=== PATIENT | female | born 1990 | race Two or more races ===

== ENCOUNTER → 2016-07-01 | Outpatient (CLI) | payer SELFPAY | LOC: RAD 12:29 | PROVIDERS: ATTEND Nurse Practitioner Women's Health | DX: Z34.82 Encounter for supervision of other normal pregnancy, second trimester (principal) | CPT/HCPCS: 76805 ==

== ENCOUNTER 2016-09-22 13:10 | Outpatient (CLI) | payer SELFPAY ==
[2016-09-22 15:03] LABS: APPEARANCE,URINE SLIGHTLY-CLOUDY; BILIRUBIN,URINE NEGATIVE (NEGATIVE); GLUCOSE, URINE 50 mg/dL (NEGATIVE); KETONES,URINE 80 mg/dL (NEGATIVE); LEUKOCYTE ESTERASE,URINE NEGATIVE (NEGATIVE); NITRITE,URINE NEGATIVE (NEGATIVE); PROTEIN,URINE 30 mg/dL (NEGATIVE); URINE SPECIFIC GRAVITY 1.024; UROBILINOGEN,URINE NEGATIVE mg/dL (<2.0)
[2016-09-22 15:38] LABS: URINE BARBITURATES SCREEN NEGATIVE; URINE METHADONE SCREEN NEGATIVE; URINE OPIATES LOW NEGATIVE; URINE PHENCYCLIDINE SCREEN NEGATIVE
== END 2016-09-22 16:15 | disposition home or self-care (01) ==
LOC: LC 13:10
PROVIDERS: ATTEND Obstetrics & Gynecology
PROC: 4A1HXCZ Monitoring of Products of Conception, Cardiac Rate, External Approach (ICD-10-PCS; principal; 2016-09-22)
DX: O47.03 False labor before 37 completed weeks of gestation, third trimester (principal); Z3A.31 31 weeks gestation of pregnancy
CPT/HCPCS: 80307; 81005

== ENCOUNTER 2016-10-31 12:32 | Outpatient (CLI) | payer SELFPAY ==
--- NOTE | 2016-10-31 13:19 | Non Stress Test Report ---
Non Stress Test Datetime Report Generated by CPN: 10/31/2016 13:19 DEMOGRAPHIC EGA NST: 32.2 INDICATION Indication for Study: Other Indication for Study (NST) Other: lc MONITORING Monitor Explained: Monitor Explained; Test Explained; Patient Verbalized Understanding Time on Monitor: 09/22/2016 13:30 Time off Monitor: 09/22/2016 16:15 NST Duration: 165 NST INTERVENTIONS NST Interventions: PO Hydration; IV Fluids; Reposition Patient Physician Notified NST: H. Sp, CNM BABY A: [id number] BABY A Movement : Present Contraction Frequency : irreg FHR Baseline : 125 Accelerations : 15X15 Decelerations : None Variability : Moderate 6-25bpm NST Review: Meets Criteria for Reactive NST NST Review and Verified By : BLU Edward Results: Reactive NST REPORT Report Trigger: Send Report
[2016-10-31 13:53] LABS: APPEARANCE,URINE CLOUDY; BILIRUBIN,URINE NEGATIVE (NEGATIVE); GLUCOSE, URINE NEGATIVE (NEGATIVE); KETONES,URINE NEGATIVE (NEGATIVE); LEUKOCYTE ESTERASE,URINE TRACE (NEGATIVE); NITRITE,URINE NEGATIVE (NEGATIVE); PROTEIN,URINE 30 mg/dL (NEGATIVE); URINE SPECIFIC GRAVITY 1.015; UROBILINOGEN,URINE NEGATIVE mg/dL (<2.0)
[2016-10-31 14:24] LABS: URINE BARBITURATES SCREEN NEGATIVE; URINE METHADONE SCREEN NEGATIVE; URINE OPIATES LOW NEGATIVE; URINE PHENCYCLIDINE SCREEN NEGATIVE
--- NOTE | 2016-10-31 14:51 | Non Stress Test Report ---
Non Stress Test Datetime Report Generated by CPN: 10/31/2016 14:51 DEMOGRAPHIC EGA NST: 37.6 INDICATION Indication for Study: Decreased Movement MONITORING Monitor Explained: Monitor Explained; Test Explained; Patient Verbalized Understanding Time on Monitor: 10/31/2016 13:22 Time off Monitor: 10/31/2016 14:21 NST Duration: 59 NST INTERVENTIONS NST Interventions: PO Hydration Physician Notified NST: Dr. Maher BABY A Contraction Frequency : 2-6 FHR Baseline : 140 Accelerations : 15X15 Decelerations : None Variability : Moderate 6-25bpm NST Review: Meets Criteria for Reactive NST NST Review and Verified By : Joe Bui RNC NST Results: Reactive NST REPORT Report Trigger: Send Report
== END 2016-10-31 14:38 | disposition home or self-care (01) ==
LOC: LC 12:32
PROVIDERS: ATTEND Student in an Organized Health Care Education/Training Program
PROC: 4A1HXCZ Monitoring of Products of Conception, Cardiac Rate, External Approach (ICD-10-PCS; principal; 2016-10-31)
DX: O36.8130 Decreased fetal movements, third trimester, not applicable or unspecified (principal); O47.1 False labor at or after 37 completed weeks of gestation; Z3A.37 37 weeks gestation of pregnancy
CPT/HCPCS: 59025; 80307; 81005

== ENCOUNTER 2016-11-15 12:25 | Inpatient (IN) | payer MEDICAID ==
[2016-11-15] MEDS ORDERED: DIPHENHYDRAMINE HCL 25 MG CAPSULE ONE ×2 (13:01→13:52)
[2016-11-15 13:45] LABS: APPEARANCE,URINE SLIGHTLY-CLOUDY; BILIRUBIN,URINE SMALL (NEGATIVE); GLUCOSE, URINE NEGATIVE (NEGATIVE); KETONES,URINE NEGATIVE (NEGATIVE); LEUKOCYTE ESTERASE,URINE NEGATIVE (NEGATIVE); NITRITE,URINE NEGATIVE (NEGATIVE); PROTEIN,URINE >=500 mg/dL (NEGATIVE); URINE SPECIFIC GRAVITY 1.024
[2016-11-15] MEDS ORDERED: RINGERS SOLUTION,LACTATED 1,000 ML IV ONE (13:52)
[2016-11-15] MEDS ORDERED: RINGERS SOLUTION,LACTATED 1,000 ML IV PRN ×2 (13:52→14:42)
[2016-11-15 13:57] LABS: ABSOLUTE EOSINOPHILS # (AUTO) 0.1 10^3/uL (0.0-0.6); ABSOLUTE LYMPHOCYTES (AUTO) 0.8 10^3/uL (0.5-4.7); ABSOLUTE MONOCYTES (AUTO) 0.3 10^3/uL (0.1-1.4); ABSOLUTE NEUT (AUTO) 1.8 10^3/uL (1.7-8.2); EOSINOPHILS % (AUTO) 2.4 % (0-6); HEMATOCRIT 32.4 % (36.0-47.0); HEMOGLOBIN 10.7 g/dL (12.0-15.5); HGB HCT DIFFERENCE -0.3; LYMPHOCYTES % (AUTO) 27.2 % (13-45); MEAN CORPUSCULAR HEMOGLOBIN 27.3 pg (27.0-33.4); MEAN CORPUSCULAR HGB CONC 33.1 g/dL (32.0-36.0); MEAN CORPUSCULAR VOLUME 83 fl (80-97); MONOCYTES % (AUTO) 10.2 % (3-13); RED BLOOD COUNT 3.93 10^6/uL (3.72-5.28); RED CELL DISTRIBUTION WIDTH 16.3 % (11.5-14.0); SEGMENTED NEUTROPHILS % (AUTO) 59.2 % (42-78)
[2016-11-15 14:10] LABS: BLOOD UREA NITROGEN 9 mg/dL (7-20); CREATININE RESULT 0.59 mg/dL (0.52-1.25); GLUCOSE 64 mg/dL (75-110)
[2016-11-15 14:11] LABS: ALANINE AMINOTRANSFERASE 90 U/L (9-52); ALBUMIN 2.4 g/dL (3.5-5.0); ALKALINE PHOSPHATASE 288 U/L (38-126); AMYLASE 73 U/L (30-110); ANION GAP 8 (5-19); ASPARTATE AMINO TRANSFERASE 47 U/L (14-36); BILIRUBIN,DIRECT 0.4 mg/dL (0.0-0.4); CARBON DIOXIDE 19 mmol/L (22-30); CHLORIDE 103 mmol/L (98-107); LIPASE 98.2 U/L (23-300); SODIUM 130.2 mmol/L (137-145); TOTAL PROTEIN 5.4 g/dL (6.3-8.2)
[2016-11-15 14:12] LABS: URINE BARBITURATES SCREEN NEGATIVE; URINE METHADONE SCREEN NEGATIVE; URINE OPIATES LOW NEGATIVE; URINE PHENCYCLIDINE SCREEN NEGATIVE
[2016-11-15] MEDS ORDERED: RINGERS SOLUTION,LACTATED 300 ML IV ONE (14:42)
[2016-11-15] MEDS ORDERED: OXYTOCIN/NORMAL SALINE 1,000 ML IV PRN (14:42)
[2016-11-15] MEDS ORDERED: MISOPROSTOL 0.1 MG TABLET PO SCH (14:45)
[2016-11-15 14:48] LABS: URIC ACID 5.5 mg/dL (2.5-6.2)
[2016-11-15 15:15] LABS: URINE CREATININE 235.8 mg/dL (16-327)
[2016-11-15] MEDS ORDERED: MISOPROSTOL 0.1 MG TABLET ONE (15:39)
[2016-11-15 15:42] LABS: URINE PROTEIN 828.9 mg/dL (<12)
[2016-11-15 17:49] LABS: ABSOLUTE EOSINOPHILS # (AUTO) 0.1 10^3/uL (0.0-0.6); ABSOLUTE MONOCYTES (AUTO) 0.3 10^3/uL (0.1-1.4); ABSOLUTE NEUT (AUTO) 2.4 10^3/uL (1.7-8.2); BASOPHILS % (AUTO) 0.8 % (0-2); EOSINOPHILS % (AUTO) 2.1 % (0-6); HEMATOCRIT 34.7 % (36.0-47.0); HEMOGLOBIN 11.5 g/dL (12.0-15.5); HGB HCT DIFFERENCE -0.2; MEAN CORPUSCULAR HEMOGLOBIN 27.3 pg (27.0-33.4); MEAN CORPUSCULAR HGB CONC 33.3 g/dL (32.0-36.0); MEAN CORPUSCULAR VOLUME 82 fl (80-97); MONOCYTES % (AUTO) 8.1 % (3-13); RED BLOOD COUNT 4.23 10^6/uL (3.72-5.28); RED CELL DISTRIBUTION WIDTH 16.2 % (11.5-14.0); WHITE BLOOD COUNT 3.8 10^3/uL (4.0-10.5)
[2016-11-15 17:58] LABS: ALANINE AMINOTRANSFERASE 98 U/L (9-52); ALBUMIN 2.6 g/dL (3.5-5.0); ALKALINE PHOSPHATASE 305 U/L (38-126); ANION GAP 11 (5-19); ASPARTATE AMINO TRANSFERASE 48 U/L (14-36); BILIRUBIN,DIRECT 0.5 mg/dL (0.0-0.4); BILIRUBIN,TOTAL 1.2 mg/dL (0.2-1.3); BLOOD UREA NITROGEN 7 mg/dL (7-20); CALCIUM 8.3 mg/dL (8.4-10.2); CARBON DIOXIDE 19 mmol/L (22-30); CHLORIDE 104 mmol/L (98-107); CREATININE RESULT 0.57 mg/dL (0.52-1.25); GLUCOSE 70 mg/dL (75-110); LDH 492 U/L (313-618); POTASSIUM 4.1 mmol/L (3.6-5.0); SODIUM 133.5 mmol/L (137-145); TOTAL PROTEIN 5.4 g/dL (6.3-8.2); URIC ACID 5.4 mg/dL (2.5-6.2)
[2016-11-15] MEDS ORDERED: NALBUPHINE HCL INJ 10 MG/1 ML AMPULE INJ ONE (20:23)
[2016-11-15] MEDS ORDERED: NALBUPHINE HCL INJ 10 MG/1 ML AMPULE ONE (20:27)
[2016-11-15] MEDS ORDERED: MISOPROSTOL 0.2 MG TABLET ONE (20:27)
[2016-11-15] MEDS ORDERED: OXYTOCIN/NORMAL SALINE 20 UNIT/1,000 ML RTUINJ ONE (20:27)
[2016-11-15] MEDS ORDERED: LIDOCAINE 1% INJ-PF (10 MG/ML) 30 ML SDV ONE (20:27)
--- NOTE | 2016-11-15 20:36 | L&D Progress Notes ---
PROGRESS NOTES Datetime Report Generated by CPN: 11/15/2016 20:36 PROGRESS NOTE Impression: Normal Progression of Labor Procedures: Sterile Vag Exam Plan: Continue Present Management; Induction; Cervical Ripening Informed Consent Obtained: Vaginal Delivery; Risks, Benefits and Alternatives Discussed Informed Consent Obtained: Vaginal Delivery; Risks, Benefits and Alternatives Discussed Vital Signs : Reviewed; Within Normal Limits Comment: cvx 1/70/-2 after 4 hours of cytotec. FB to tension placed and will start pitocin. Pelvis adequate for JOSE ANGEL. friends at bedside. GBS negative. Anticpate VAGINAL EXAM Dilatation: 1 Dilatation: 1 Effacement: 70 Effacement: 50 Station: -2 Station: -3 MEMBRANES Membranes: Intact FETUS A FHR - Baseline: 160 Monitoring: External US Variability: Moderate 6-25bpm Accelerations: 15X15 Decelerations: None FHR Category: Category I Presentation: Vertex SIGNATURE SIGNATURE: [id number];[id number] SIGNATURE: [id number] SIGNATURE: [id number] Signature: with User ID: [email or web address]
--- NOTE | 2016-11-15 21:44 | L&D Progress Notes ---
PROGRESS NOTES Datetime Report Generated by CPN: 11/15/2016 21:44 PROGRESS NOTE Impression: Normal Progression of Labor; Reassuring Heart Rate Procedures: Artificial ROM; Sterile Vag Exam Plan: Continue Present Management; Induction Informed Consent Obtained: Vaginal Delivery; Risks, Benefits and Alternatives Discussed Vital Signs : Reviewed; Within Normal Limits Comment: pt with regular ctx pattern. Normal BPs and stable labs. FB noted to be in vagina and removed. Cvx now 6-7//-3 and AROM with thick meconium noted. Pt reports feeling pressure. Declines pain meds and declines epidural. Anticpate . Pelvis adequate for JOSE ANGEL. VAGINAL EXAM Dilatation: 6 Effacement: 70 Station: -3 MEMBRANES Membranes: Ruptured Amniotic Fluid Color: Meconium, Particulate FETUS A FHR - Baseline: 125 Monitoring: External US Variability: Moderate 6-25bpm Accelerations: 15X15 Decelerations: None FHR Category: Category I FETUS C SIGNATURE: [id number];[id number] Signature: with User ID: [email or web address]
[2016-11-16] MEDS ORDERED: ONDANSETRON 4 MG TAB.RAPDIS ONE (03:01)
[2016-11-16] MEDS ORDERED: MISOPROSTOL 0.2 MG TABLET PR ONE ×2 (03:12→05:00)
[2016-11-16] MEDS ORDERED: OXYTOCIN 10 UNIT/ML VIAL ONE (03:20)
[2016-11-16] MEDS ORDERED: METHYLERGONOVINE MALEATE INJ/PF 0.2 MG/1 ML AMPULE ONE (03:20)
[2016-11-16] MEDS ORDERED: IBUPROFEN 800 MG TABLET ONE (03:38)
[2016-11-16] MEDS ORDERED: CEFAZOLIN 2 GM/D5W RTU 2 GM/50 ML RTUPB IV ONE (03:41)
[2016-11-16] MEDS ORDERED: ZOLPIDEM TARTRATE 5 MG TABLET PO PRN (05:11)
[2016-11-16] MEDS ORDERED: DIPH/PERTUSS(ACELL)/TETANUS VAC/PF 0.5 ML SYR (>=10YO) IM PRN (05:11)
[2016-11-16] MEDS ORDERED: MEASLES,MUMPS&RUBELLA VACC/PF 0.5 ML VIAL SUBCUT PRN (05:11)
[2016-11-16] MEDS ORDERED: DIBUCAINE 1% OINTMENT 28 GM TP PRN (05:11)
[2016-11-16] MEDS ORDERED: ACETAMINOPHEN WITH CODEINE #3 TABLET PO PRN ×2 (05:11)
[2016-11-16] MEDS ORDERED: BENZOCAINE/MENTHOL AEROSOL SPRAY 56 ML TOP PRN (05:11)
--- NOTE | 2016-11-16 05:18 | Delivery Summary ---
Del Sum A-C Datetime Report Generated by CPN: 11/16/2016 05:17 DELIVERY PERSONNEL DELIVERY PERSONNEL: [id number];[id number];[id number] Delivery Doctor:: Terra Maher MD Labor and Delivery Nurse:: Brandie Doss RN Nursery Nurse:: Kelsy Graves RN MSN Packaging Materials Inspector/SUPERVISOR RESEARCH KENNEL: Bibi Torres, ST MATERNAL INFORMATION Delivery Anesthesia: Local Medications After Delivery: Pitocin Drip 20 Units/1000ml NSS; Methergine 0.2mg IM; Other-Please Comment Meds After Delivery Comment: Cytotec 1000mcg per rectum Estimated Blood Loss (ml): 450 Maternal Complications: None Provider Comments: VFI delivered in ZACARIAS presentation. Loose nuchal cord delivered through. SHoulders and body delivered without difficulty. Cord doubly clamped and cut and infant to warmer for NRP. Placenta delivered intact spontaneously. Uterine atony noted - manual exploration revealed retained membranes. Methergine IM and Cytotec given and 20units of pitocin added to bag. Straight cath performed with minimal output. Significant improvement noted in tone and now with minimal bleeding. 1st degree midline laceration repaired with good hemostasis. Apgars 8/9. Weight pending. FF at U. LABOR SUMMARY EDC: 11/15/2016 00:00 No. Babies in Womb: 1 Attempted: No Labor Anesthesia: None LABOR INFORMATION Reason for Induction: Other Reason for Induction- Other: increased PIH labs Onset of Labor: 11/15/2016 21:37 Complete Dilatation: 11/16/2016 02:52 Cervical Ripening Agents: Porter Balloon; Cytotec @ Oxytocin: Induction Group B Beta Strep: negative Antibiotics # of Doses: 0 Steroids Given: None Reason Steroids Not Administered: Not Applicable MEMBRANES Membranes Rupture Method: Artificial Rupture of Membranes: 11/15/2016 21:37 Length of Rupture (hr): 5.58 Amniotic Fluid Color: Heavy Meconium Amniotic Fluid Amount: Small Amniotic Fluid Odor: Normal STAGES OF LABOR Stage 1 hr: 5 Stage 1 min: 15 Stage 2 hr: 0 Stage 2 min: 20 Stage 3 hr: 0 Stage 3 min: 2 Total Time in Labor hr: 5 Total Time in Labor min: 37 VAGINAL DELIVERY Episiotomy: None Laceration Extension: First Degree Laceration Type: Perineal Other Laceration: midline Laceration Repair: Yes Laceration Repair Note: 1st degree ML perineal laceration repaired with good hemostasis. Sponge Count Correct: N/A Sharps Count Correct: Yes CSECTION DELIVERY Primary Indication: N/A Secondary Indication: N/A CSection Incidence: N/A Labor: N/A Elective: N/A CSection Incision: N/A BABY A INFORMATION Delivery Date/Time: 11/16/2016 03:12 Method of Delivery: Vaginal Born in Route : No : N/A Forceps: N/A Vacuum Extraction: N/A Shoulder Dystocia : No PRESENTATION/POSITION BABY A Presentation: Cephalic Cephalic Presentation: Vertex Vertex Position: Left Occipital Anterior Breech Presentation: N/A PLACENTA INFORMATION BABY A Placenta Delivery Time : 11/16/2016 03:14 Placenta Method of Delivery: Spontaneous Placenta Status: Delivered SCORES BABY A Heart Rate 1 min: >100 bpm Resp Effort 1 min: Good Cry Reflex Irritability 1 min: Cough or Sneeze or Pulls Away Muscle Tone 1 min: Active Motion Color 1 min: Blue/Pale Resuscitation Effort 1 min: Tactile Stimulation SCORE 1 MIN: 8 Heart Rate 5 min: >100 bpm Resp Effort 5 min: Good Cry Reflex Irritability 5 min: Cough or Sneeze or Pulls Away Muscle Tone 5 min: Active Motion Color 5 min: Body [place], Extremities Blue Resuscitation Effort 5 min: Tactile Stimulation SCORE 5 MIN: 9 INFANT INFORMATION BABY A Gestational Age at Delivery: 40.1 Gestational Status: Full Term- 39- 40.6 Weeks Outcome : Liveborn Infant Condition : Stable Infant Sex: Female IDENTIFICATION BABY A Verification Date/Time: 11/16/2016 03:38 ID Band Number: [id number] Mother's Name Verified: Yes RN Verifying : S. Willtibeamarieir, RN _ M. Levian, RN WEIGHT/LENGTH BABY A Infant Birthweight (gm): 3760 Weight (lb): 8 Infant Weight (oz): 5 Length (in): 21.00 Infant Length (cm): 53.34 CORD INFORMATION BABY A No. Cord Vessels: 3 Nuchal Cord : Around Neck x1, Loose Cord Blood Taken: Yes-For Eval (Mom's Blood Type - or O+) Infant Suction: Mouth; Nose ASSESSMENT BABY A Infant Complications: Meconium Physical Findings at Delivery: Molding of the Head Infant Respirations: Appears Normal Skin to Skin: No Skin to Skin Time (min): 0 Automobile Brakes Bonder/ALS Called : No Care By: Jordan Graves RN Transferred To: Remains with Mother BABY B INFORMATION : N/A SIGNATURES Signature: with User ID: [email or web address]
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
[2016-11-16] MEDS: DOCUSATE SODIUM 100 MG CAPSULE PO SCH ×2 (09:47→17:04)
[2016-11-16] MEDS: FERROUS SULFATE 325 MG TABLET PO SCH ×2 (09:47→17:04)
[2016-11-16] MEDS: PRENATAL VITAMIN W-O CA NO5/FE FUMARATE/FA CAPSULE PO SCH (09:47)
[2016-11-16] MEDS: IBUPROFEN 800 MG TABLET PO SCH ×3 (09:48→21:16)
[2016-11-16] MEDS: SENNOSIDES/DOCUSATE 8.6-50 MG 1 EACH TABLET PO SCH (09:48)
--- NOTE | 2016-11-16 11:37 | PDOC PROGRESS REPORT ---
Subjective-OB Subjective: Post Delivery Day: 26 year old. Denies any needs at this time australian speaking no translation needed pt offers no complaints spouse and son present bps labile 140- 150/ 80-90 denies headache or blurred vision ff@u-1 mild lochia discharge planning completed Physical Exam (OB) Vital Signs: Temp Pulse Resp BP Pulse Ox 98.8 F 54 L 18 145/84 H 100 11/16/16 07:27 11/16/16 09:23 11/16/16 05:32 11/16/16 09:23 11/16/16 07:27 Intake & Output 11/15/16 11/16/16 11/17/16 06:59 06:59 06:59 Weight 69.55 kg - PIH/Pre-Eclampsia Headache: Absent Epigastric Pain: No Visual Changes: No - Lochia Lochia Amount: Moderate 25-50 ml Lochia Color: Rubra/Red - Abdomen Description: Soft, Round Hernia Present: No Fundal Description: Firm, Non-Midline Describe if Not Midline: slightly over to the right Fundal Height: u/u - u/2 Objective-Diagnostic Laboratory: 11/15/16 17:30 11/15/16 17:30 11/15/16 11/15/16 11/15/16 13:00 13:30 13:30 WBC 3.0 L RBC 3.93 Hgb 10.7 L Hct 32.4 L MCV 83 MCH 27.3 MCHC 33.1 RDW 16.3 H Plt Count 131 L Seg Neutrophils % 59.2 Lymphocytes % 27.2 Monocytes % 10.2 Eosinophils % 2.4 Basophils % 1.0 Absolute Neutrophils 1.8 Absolute Lymphocytes 0.8 Absolute Monocytes 0.3 Absolute Eosinophils 0.1 Absolute Basophils 0.0 Sodium 130.2 L Potassium 4.0 Chloride 103 Carbon Dioxide 19 L Anion Gap 8 BUN 9 Creatinine 0.59 Est GFR ( Amer) > 60 Est GFR (Non-Af Amer) > 60 Glucose 64 L Uric Acid Calcium 8.0 L Total Bilirubin 1.0 AST 47 H ALT 90 H Alkaline Phosphatase 288 H Total Protein 5.4 L Albumin 2.4 L Amylase 73 Lipase 98.2 Urine Color NISA Urine Appearance SLIGHTLY-CLOUDY Urine pH 5.0 Ur Specific [place] 1.024 Urine Protein >=500 H Urine Glucose (UA) NEGATIVE Urine Ketones NEGATIVE Urine Blood NEGATIVE Urine Nitrite NEGATIVE Ur Leukocyte Esterase NEGATIVE Urine WBC (Auto) 8 Urine RBC (Auto) 3 Blood Type Antibody Screen 11/15/16 11/15/16 11/15/16 13:30 13:30 17:30 WBC 3.8 L RBC 4.23 Hgb 11.5 L Hct 34.7 L MCV 82 MCH 27.3 MCHC 33.3 RDW 16.2 H Plt Count 128 L Seg Neutrophils % 62.0 Lymphocytes % 27.0 Monocytes % 8.1 Eosinophils % 2.1 Basophils % 0.8 Absolute Neutrophils 2.4 Absolute Lymphocytes 1.0 Absolute Monocytes 0.3 Absolute Eosinophils 0.1 Absolute Basophils 0.0 Sodium Potassium Chloride Carbon Dioxide Anion Gap BUN Creatinine Est GFR ( Amer) Est GFR (Non-Af Amer) Glucose Uric Acid 5.5 Calcium Total Bilirubin AST ALT Alkaline Phosphatase Total Protein Albumin Amylase Lipase Urine Color Urine Appearance Urine pH Ur Specific [place] Urine Protein Urine Glucose (UA) Urine Ketones Urine Blood Urine Nitrite Ur Leukocyte Esterase Urine WBC (Auto) Urine RBC (Auto) Blood Type O POSITIVE Antibody Screen NEGATIVE 11/15/16 17:30 WBC RBC Hgb Hct MCV MCH MCHC RDW Plt Count Seg Neutrophils % Lymphocytes % Monocytes % Eosinophils % Basophils % Absolute Neutrophils Absolute Lymphocytes Absolute Monocytes Absolute Eosinophils Absolute Basophils Sodium 133.5 L Potassium 4.1 Chloride 104 Carbon Dioxide 19 L Anion Gap 11 BUN 7 Creatinine 0.57 Est GFR ( Amer) > 60 Est GFR (Non-Af Amer) > 60 Glucose 70 L Uric Acid 5.4 Calcium 8.3 L Total Bilirubin 1.2 AST 48 H ALT 98 H Alkaline Phosphatase 305 H Total Protein 5.4 L Albumin 2.6 L Amylase Lipase Urine Color Urine Appearance Urine pH Ur Specific [place] Urine Protein Urine Glucose (UA) Urine Ketones Urine Blood Urine Nitrite Ur Leukocyte Esterase Urine WBC (Auto) Urine RBC (Auto) Blood Type Antibody Screen
[2016-11-16] MEDS ORDERED: SIMETHICONE 80 MG TAB.CHEW PO PRN (15:59)
[2016-11-17] MEDS: IBUPROFEN 800 MG TABLET PO SCH ×3 (05:04→21:01)
[2016-11-17 07:22] LABS: HEMATOCRIT 26.3 % (36.0-47.0); HGB HCT DIFFERENCE 0.1; MEAN CORPUSCULAR HEMOGLOBIN 27.8 pg (27.0-33.4); MEAN CORPUSCULAR HGB CONC 33.5 g/dL (32.0-36.0); MEAN CORPUSCULAR VOLUME 83 fl (80-97); RED BLOOD COUNT 3.17 10^6/uL (3.72-5.28); RED CELL DISTRIBUTION WIDTH 16.3 % (11.5-14.0)
[2016-11-17 07:37] LABS: HEMOGLOBIN 8.8 g/dL (12.0-15.5)
[2016-11-17] MEDS: FERROUS SULFATE 325 MG TABLET PO SCH ×2 (10:20→18:08)
[2016-11-17] MEDS: DOCUSATE SODIUM 100 MG CAPSULE PO SCH ×2 (10:20→18:08)
[2016-11-17] MEDS: PRENATAL VITAMIN W-O CA NO5/FE FUMARATE/FA CAPSULE PO SCH (10:20)
[2016-11-17] MEDS: SENNOSIDES/DOCUSATE 8.6-50 MG 1 EACH TABLET PO SCH (10:20)
--- NOTE | 2016-11-17 16:20 | PDOC PROGRESS REPORT ---
Subjective-OB Subjective: Post Delivery Day:1 26 year old G3 now P3 s/p ppd1. Ambulating and voiding without difficulty. Denies any needs at this time Physical Exam (OB) Vital Signs: Temp Pulse Resp BP Pulse Ox 97.5 F 75 14 100/52 L 100 11/17/16 07:54 11/17/16 07:54 11/17/16 07:54 11/17/16 07:54 11/17/16 07:54 Intake & Output 11/16/16 11/17/16 11/18/16 06:59 06:59 06:59 Intake Total 425 480 Balance 425 480 Weight 69.55 kg - General General Appearance: Appears well In distress: None - PIH/Pre-Eclampsia Clonus: Negative Headache: Absent Epigastric Pain: No Visual Changes: No - Lochia Lochia Amount: Small 10-25 ml Lochia Color: Rubra/Red - Abdomen Description: Soft, Round Hernia Present: No Fundal Description: Firm, Midline Fundal Height: u/u - u/2 Objective-Diagnostic Laboratory: 11/17/16 07:00 11/15/16 17:30 11/17/16 07:00 WBC 8.0 D RBC 3.17 L Hgb 8.8 L D Hct 26.3 L MCV 83 MCH 27.8 MCHC 33.5 RDW 16.3 H Plt Count 124 L Assessment and Plan(PN) - Assessment and Plan (1) Vaginal delivery Is this a current diagnosis for this admission?: YesPlan: continue stay (2) Retained placenta or membranes without hemorrhage Is this a current diagnosis for this admission?: YesPlan: continue stay (3) Acute blood loss anemia Is this a current diagnosis for this admission?: YesPlan: feso4 and increase dietary iron - Time Spent with Patient Time with patient: 15-25 minutes Medications reviewed and adjusted accordingly: Yes - Disposition Anticipated Discharge: Home Within: within 24 hours
[2016-11-18] MEDS: IBUPROFEN 800 MG TABLET PO SCH (05:36)
--- NOTE | 2016-11-18 09:00 | PDOC DISCHARGE SUMMARY ---
Final Diagnosis Discharge Date: 11/18/16 - Final Diagnosis (1) Acute blood loss anemia Is this a current diagnosis for this admission?: Yes (2) Retained placenta or membranes without hemorrhage Is this a current diagnosis for this admission?: Yes (3) Vaginal delivery Is this a current diagnosis for this admission?: Yes Discharge Data - Discharge Medication Home Medications: Docusate Sodium [Colace 100 mg Capsule] 100 mg PO BID #60 capsule 11/18/16 Ferrous Sulfate [Feosol 325 mg Tablet] 325 mg PO BID #60 tablet 11/18/16 Ibuprofen [Motrin 800 mg Tablet] 800 mg PO Q8 #60 tablet 11/18/16 Gestational Age: 40.1 Reason(s) for Admission: Induction of Labor, PIH Procedures: NST Intrapartum Procedure(s): Spontaneous Vaginal Delivery Complication(s): Laceration-Vaginal Laceration-Degree: 1st - Data Baby 1 Female at 1 minute: 8 at 5 minutes: 9 Weight: 3760 kg Home with Mother: Yes Complications: No - Diagnosis Test Laboratory: Temp Pulse Resp BP Pulse Ox 98.4 F 91 14 108/54 L 100 11/17/16 20:43 11/17/16 20:43 11/17/16 07:54 11/17/16 20:43 11/17/16 20:43 11/15/16 11/15/16 11/15/16 13:00 13:30 17:30 RBC 3.93 4.23 Hgb 10.7 L 11.5 L Hct 32.4 L 34.7 L Urine Opiates Screen NEGATIVE 11/17/16 07:00 RBC 3.17 L Hgb 8.8 L D Hct 26.3 L Urine Opiates Screen - Discharge information/Instructions Discharge Activity: Activity As Tolerated, Pelvic Rest, No tub bath Discharge Diet: Regular Disposition: HOME, SELF-CARE Follow up with: [facility] in: 1, Weeks - [facility] f/u 1 w bp check, and 4 w f/u pp
[2016-11-18] MEDS: DOCUSATE SODIUM 100 MG CAPSULE PO SCH (09:29)
[2016-11-18] MEDS: FERROUS SULFATE 325 MG TABLET PO SCH (09:30)
[2016-11-18] MEDS: PRENATAL VITAMIN W-O CA NO5/FE FUMARATE/FA CAPSULE PO SCH (09:30)
[2016-11-18] MEDS: SENNOSIDES/DOCUSATE 8.6-50 MG 1 EACH TABLET PO SCH (09:30)
[2016-11-18 10:02] VITALS: BP 100/52
== END 2016-11-18 11:41 | disposition home or self-care (01) | DRG 774 ==
LOC: LC 12:25 → LR 14:44 → 2S 11-16 05:25
PROVIDERS: ADMIT Student in an Organized Health Care Education/Training Program; ATTEND Student in an Organized Health Care Education/Training Program
PROC: 10E0XZZ Delivery of Products of Conception, External Approach (ICD-10-PCS; principal; 2016-11-16)
PROC: 0HQ9XZZ Repair Perineum Skin, External Approach (ICD-10-PCS; 2016-11-16)
DX: O13.4 Gestational [pregnancy-induced] hypertension without significant proteinuria, complicating childbirth (principal); O73.0 Retained placenta without hemorrhage; O99.12 Other diseases of the blood and blood-forming organs and certain disorders involving the immune mechanism complicating childbirth; D62 Acute posthemorrhagic anemia; O69.81X0 Labor and delivery complicated by cord around neck, without compression, not applicable or unspecified; D69.59 Other secondary thrombocytopenia; O70.0 First degree perineal laceration during delivery; O77.0 Labor and delivery complicated by meconium in amniotic fluid; O90.81 Anemia of the puerperium; Z3A.40 40 weeks gestation of pregnancy; Z37.0 Single live birth
CPT/HCPCS: 36415; 80053; 80307; 81001; 82150; 82239; 82570; 82962; 83615; 83690; 84156; 84550; 85025; 85027; 86592; 86850; 86900; 86901; 88307; 94760; C1726; J0690; J2210; J2300; J2590; J3490; S0119

== ENCOUNTER → 2017-10-03 | Outpatient (CLI) | payer SELFPAY ==
--- NOTE | 2017-10-03 15:44 | RADIOLOGY REPORT (SQ) ---
EXAM DESCRIPTION: U/S OB 14+ TRNABD 1GES W/O DOP COMPLETED DATE/TIME: 10/03/2017 3:02 pm REASON FOR STUDY: ENCTR FOR SUPERVISION OF OTHER NORMAL , 2ND TRIMESTER (Z34.82) Z34.82 EN COUNTER FOR SUPRVSN OF NORMAL , SECOND TRI COMPARISON: No previous this TECHNIQUE: Static and Dynamic grayscale imaging performed of gravid uterus using transabdominal appr oac. Additional selected color Doppler and spectral images recorded. All stored on PACS. LIMITATIONS: None. FINDINGS: EGA: 16 weeks 6 days by ultrasound RODOLFO: 03/19/2018 EFW: 159 grams PERCENTILE: Not applicable. Fetus less than or equal to 20 weeks gestation. CAITLIN: Largest pocket 3.5 cm PLACENTA: Anterior grade 1 with marginal previa. No retroplacental hemorrhage. PRESENTATION: Variable ANATOMY: HEART RATE: 157 beats per minute. FOUR CHAMBER HEART: Visualized. THREE VESSEL CORD: Yes. CORD INSERTION: Visualized. KIDNEYS AND BLADDER: Visualized. Appear normal. STOMACH: Visualized. Appears normal. SPINE: Normal as visualized. BRAIN AND LATERAL VENTRICLES: Visualized. Appear normal. OTHER: No other significant finding. MATERNAL ADNEXA: Maternal ovaries not visualized. CERVICAL LENGTH: 6 cm Closed. OTHER: No other significant finding. IMPRESSION: LIVING INTRAUTERINE . ESTIMATED GESTATIONAL AGE 16 weeks 6 days Anterior placenta with marginal previa. No retroplacental hemorrhage. Normal anatomy Trimester of : Second trimester - 13 weeks 1 day to 27 weeks 6 days. TECHNICAL DOCUMENTATION: JOB ID: [id number] [employer]- All Rights Reserved Reading location - IP/workstation name: [email or web address]
== END ==
LOC: RAD 13:46
PROVIDERS: ATTEND Nurse Practitioner Women's Health
DX: Z34.82 Encounter for supervision of other normal pregnancy, second trimester (principal)
CPT/HCPCS: 76805

== ENCOUNTER → 2017-10-20 | Outpatient (CLI) | payer SELFPAY ==
[2017-10-20 13:00] LABS: ALANINE AMINOTRANSFERASE 36 U/L (9-52); ALBUMIN 3.7 g/dL (3.5-5.0); ALKALINE PHOSPHATASE 73 U/L (38-126); ANION GAP 10 (5-19); ASPARTATE AMINO TRANSFERASE 21 U/L (14-36); BILIRUBIN,DIRECT 0.2 mg/dL (0.0-0.4); BILIRUBIN,TOTAL 0.9 mg/dL (0.2-1.3); BLOOD UREA NITROGEN 4 mg/dL (7-20); CARBON DIOXIDE 23 mmol/L (22-30); CHLORIDE 106 mmol/L (98-107); GLUCOSE 76 mg/dL (75-110); LDH 308 U/L (313-618); POTASSIUM 3.8 mmol/L (3.6-5.0); SODIUM 138.7 mmol/L (137-145); TOTAL PROTEIN 6.7 g/dL (6.3-8.2); URIC ACID 3.3 mg/dL (2.5-6.2)
[2017-10-22 09:56] LABS: URINE PROTEIN 12.1 mg/dL (<12)
[2017-10-22 10:14] LABS: 24 HOUR URINE PROTEIN RESULT 332 mg/day (42-225)
== END ==
LOC: LAB 11:42
DX: Z34.82 Encounter for supervision of other normal pregnancy, second trimester (principal)
CPT/HCPCS: 36415; 80053; 83615; 84156; 84550

== ENCOUNTER 2018-02-15 08:13 | Outpatient (CLI) | payer SELFPAY ==
[2018-02-15 09:53] LABS: APPEARANCE,URINE SLIGHTLY-CLOUDY; BILIRUBIN,URINE NEGATIVE (NEGATIVE); COLOR,URINE YELLOW; GLUCOSE, URINE NEGATIVE (NEGATIVE); KETONES,URINE NEGATIVE (NEGATIVE); LEUKOCYTE ESTERASE,URINE NEGATIVE (NEGATIVE); NITRITE,URINE NEGATIVE (NEGATIVE); PROTEIN,URINE NEGATIVE (NEGATIVE); URINE SPECIFIC GRAVITY 1.009; UROBILINOGEN,URINE NEGATIVE mg/dL (<2.0)
[2018-02-15 10:09] LABS: URINE AMPHETAMINES SCREEN NEGATIVE; URINE BARBITURATES SCREEN NEGATIVE; URINE BENZODIAZEPINES SCREEN NEGATIVE; URINE COCAINE SCREEN NEGATIVE; URINE MARIJUANA (THC) SCREEN NEGATIVE; URINE METHADONE SCREEN NEGATIVE; URINE PHENCYCLIDINE SCREEN NEGATIVE
[2018-02-15] MEDS ORDERED: FLUCONAZOLE 100 MG TABLET PO ONE ×2 (10:41→11:30)
--- NOTE | 2018-02-15 14:06 | Non Stress Test Report ---
Non Stress Test Datetime Report Generated by CPN: 02/15/2018 14:06 DEMOGRAPHIC EGA NST: 37.2 INDICATION Indication for Study: Other Indication for Study (NST) Other: LABOR CHECK MONITORING Monitor Explained: Monitor Explained; Test Explained; Patient Verbalized Understanding Time on Monitor: 02/15/2018 09:00 Time off Monitor: 02/15/2018 12:03 NST Duration: 183 NST INTERVENTIONS NST Interventions: PO Hydration; Reposition Patient Physician Notified NST: Ana Willis, CNM BABY A: [id number] BABY A Movement : Present Contraction Frequency : IRREG FHR Baseline : 135 Accelerations : 15X15 Decelerations : None Variability : Moderate 6-25bpm NST Review: Meets Criteria for Reactive NST NST Review and Verified By : BLU Edward Results: Reactive NST REPORT Report Trigger: Send Report
== END 2018-02-15 12:23 | disposition home or self-care (01) ==
LOC: LC 08:13
PROVIDERS: ATTEND Student in an Organized Health Care Education/Training Program
PROC: 4A1HXCZ Monitoring of Products of Conception, Cardiac Rate, External Approach (ICD-10-PCS; principal; 2018-02-15)
DX: O47.1 False labor at or after 37 completed weeks of gestation (principal); Z3A.37 37 weeks gestation of pregnancy
CPT/HCPCS: 59025; 80307; 81005

== ENCOUNTER 2018-02-20 14:40 | Outpatient (CLI) | payer SELFPAY ==
[2018-02-20 15:59] LABS: URINE AMPHETAMINES SCREEN NEGATIVE; URINE BARBITURATES SCREEN NEGATIVE; URINE BENZODIAZEPINES SCREEN NEGATIVE; URINE COCAINE SCREEN NEGATIVE; URINE MARIJUANA (THC) SCREEN NEGATIVE; URINE METHADONE SCREEN NEGATIVE; URINE PHENCYCLIDINE SCREEN NEGATIVE
[2018-02-20 16:06] LABS: APPEARANCE,URINE SLIGHTLY-CLOUDY; BILIRUBIN,URINE NEGATIVE (NEGATIVE); COLOR,URINE YELLOW; GLUCOSE, URINE NEGATIVE (NEGATIVE); KETONES,URINE TRACE mg/dL (NEGATIVE); LEUKOCYTE ESTERASE,URINE NEGATIVE (NEGATIVE); NITRITE,URINE NEGATIVE (NEGATIVE); PROTEIN,URINE NEGATIVE (NEGATIVE); URINE SPECIFIC GRAVITY 1.008
== END 2018-02-20 15:58 | disposition home or self-care (01) ==
LOC: LC 14:40
PROVIDERS: ATTEND Obstetrics & Gynecology
PROC: 4A1HXCZ Monitoring of Products of Conception, Cardiac Rate, External Approach (ICD-10-PCS; principal; 2018-02-20)
DX: O47.1 False labor at or after 37 completed weeks of gestation (principal); Z3A.38 38 weeks gestation of pregnancy
CPT/HCPCS: 59025; 80307; 81005

== ENCOUNTER 2018-03-12 05:25 | Inpatient (IN) | payer SELFPAY ==
[2018-03-12 05:54] LABS: APPEARANCE,URINE SLIGHTLY-CLOUDY; BILIRUBIN,URINE NEGATIVE (NEGATIVE); COLOR,URINE YELLOW; GLUCOSE, URINE NEGATIVE (NEGATIVE); KETONES,URINE NEGATIVE (NEGATIVE); LEUKOCYTE ESTERASE,URINE NEGATIVE (NEGATIVE); NITRITE,URINE NEGATIVE (NEGATIVE); PROTEIN,URINE 30 mg/dL (NEGATIVE); URINE SPECIFIC GRAVITY 1.012; UROBILINOGEN,URINE NEGATIVE mg/dL (<2.0)
[2018-03-12 06:11] LABS: URINE AMPHETAMINES SCREEN NEGATIVE; URINE BARBITURATES SCREEN NEGATIVE; URINE BENZODIAZEPINES SCREEN NEGATIVE; URINE COCAINE SCREEN NEGATIVE; URINE MARIJUANA (THC) SCREEN NEGATIVE; URINE METHADONE SCREEN NEGATIVE; URINE PHENCYCLIDINE SCREEN NEGATIVE
[2018-03-12] MEDS ORDERED: PENICILLIN G POTASSIUM 5,000,000 UNIT in DEXTROSE 5%-WATER 100 ML IV ONE (06:13)
[2018-03-12] MEDS: RINGERS SOLUTION,LACTATED 1,000 ML IV PRN ×4 (06:18→13:25)
[2018-03-12] MEDS ORDERED: LIDOCAINE 1% INJ-PF (10 MG/ML) 30 ML SDV ONE (06:24)
[2018-03-12] MEDS ORDERED: MISOPROSTOL 0.2 MG TABLET ONE (06:24)
[2018-03-12] MEDS ORDERED: OXYTOCIN/NORMAL SALINE 20 UNIT/1,000 ML RTUINJ ONE ×3 (06:25→20:04)
[2018-03-12] MEDS ORDERED: PENICILLIN G-K 5 MILLION UNIT VIAL ONE (06:25)
--- NOTE | 2018-03-12 06:39 | Admission Physical ---
Datetime Report Generated by CPN: 03/12/2018 06:38 CURRENT ADMISSION Chief Complaint: Uterine Contractions Indication for Induction: Not Applicable Admit Impression : Term, Intrauterine Admit Plan: Admit to Unit; Initiate Labor Protocol ALLERGIES Medication Allergies: No Medication Allergies: No Known Allergies (02/20/2018) Latex: No Latex Allergies OBSTETRICAL HISTORY EDC: 03/06/2018 00:00 : 4 Para: 3 Term: 3 : 0 SAB: 0 IAB: 0 Ectopic: 0 Livin Cesareans: 0 VBACs: 0 Multiple Births: 0 Gestational Diabetes: No Rh Sensitization: No Incompetent Cervix: No JEFF: No Infertility: No ART Treatment: No Uterine Anomaly: No IUGR: No Hx Previous C/S: No Macrosomia: No Hx Loss/Stillborn: No PIH: Yes Hx : No Placenta Previa/Abruption: No Depression/PP Depression: Yes PTL/PROM: No Post Hemorrhage: Yes Current Procedures: Ultrasound; NST Obstetrical History Comments: G1 2007 Male [place] G2 2010 [place] G3- Female [facility] PPD , Preeclampsia and Hemorrhage G4- current, late ti orenatal care, short interval , was drinking a beer every day in , had pica-urge to eat dirt in the but said never did per in beginning per [facility] SEE RECORDS Alcohol: No Marijuana : No Cocaine: No Other Illicit Drugs: No Cigarettes: Never Smoker. [id number] MEDICAL HISTORY Diabetes: No Blood Transfusion: No Pulmonary Disease (Asthma, TB): No Breast Disease: No Hypertension: Yes Lifter Surgery: No Heart Disease: No Hosp/Surgery: Yes Autoimmune Disorder: No Anesthetic Complications: No Kidney Disease: No Abnormal Pap Smear: Yes Neuro/Epilepsy: No Psychiatric Disorders: No Other Medical Diseases: No Hepatitis/Liver Disease: No Significant Family History: No Varicosities/Phlebitis: Yes Trauma/Violence : No Thyroid Dysfunction: No Medical History Comments: H/O PP HEMORRAGE, depression and Pre-eclampsia with last , depression, lsil on pap, childbirth x 3, varicosities both legs, umbilical hernia INFECTIOUS HISTORY Gonorrhea: No Genital Herpes: No Chlamydia: No Tuberculosis: No Syphilis: No Hepatitis: No HIV/AIDS Exposure: No Rash or Viral Illness: No HPV: No PHYSICAL EXAM General: Normal HEENT: Normal Neurologic: Normal Thyroid: Normal Heart: Normal Lungs: Normal Breast: Normal Back: Normal Abdomen: Normal Genitourinary Exam: Normal Extremities: Normal DTRs: Normal Pelvic Type: Adequate Vital Signs: Reviewed; Within Normal Limits VAGINAL EXAM Dilatation: 3-4 Effacement: 50% Station: -2 Contraction Comments: q 2-4 MEMBRANES Membranes: Intact FETUS A EGA: 40.6 Monitoring: External US FHR- Baseline: 130s Accelerations: 15X15 Decelerations: None FHR Category: Category I Admit Comment: GBS status unknown; HD patient; records requested; language barrier PLANS FOR LABOR AND DELIVERY Pain Management: Natural Feeding Preference: Both Benefit of Breast Feed Discussed: Yes Circumcision: N/A INFORMED CONSENT Signature: with User ID: [email or web address]
[2018-03-12 07:23] LABS: ABSOLUTE LYMPHOCYTES (AUTO) 1.3 10^3/uL (0.5-4.7); ABSOLUTE MONOCYTES (AUTO) 0.3 10^3/uL (0.1-1.4); ABSOLUTE NEUT (AUTO) 2.4 10^3/uL (1.7-8.2); BASOPHILS % (AUTO) 0.4 % (0-2); EOSINOPHILS % (AUTO) 0.9 % (0-6); HEMATOCRIT 40.3 % (36.0-47.0); MEAN CORPUSCULAR HEMOGLOBIN 29.6 pg (27.0-33.4); MEAN CORPUSCULAR HGB CONC 34.6 g/dL (32.0-36.0); MEAN CORPUSCULAR VOLUME 86 fl (80-97); PLATELET COUNT 113 10^3/uL (150-450); RED BLOOD COUNT 4.72 10^6/uL (3.72-5.28); RED CELL DISTRIBUTION WIDTH 16.6 % (11.5-14.0); SEGMENTED NEUTROPHILS % (AUTO) 58.7 % (42-78); TOTAL CELLS COUNTED % (AUTO) 100 %; WHITE BLOOD COUNT 4.1 10^3/uL (4.0-10.5)
--- NOTE | 2018-03-12 09:15 | L&D Progress Notes ---
PROGRESS NOTES Datetime Report Generated by CPN: 03/12/2018 09:15 PROGRESS NOTE Impression: Reassuring Heart Rate Plan: Continue Present Management Vital Signs : Reviewed Comment: Cat 1 strip, irreg uc's, sitting on birthing ball, Dr. Martinez aware of status, if no change start Pitocin at 2 mu and increase q 15 x 2 Anticipate VAGINAL EXAM Dilatation: 3-4 Effacement: 50% Station: -2 Contractions: q 2-4 MEMBRANES Membranes: Intact FETUS A : 40.6 SIGNATURE SIGNATURE: ,[id number];[id number];13,[id number] SIGNATURE: [id number];14,[id number] SIGNATURE: [id number] Assignment: Harpreet Martinez MD Signature: with User ID: [email or web address] : with User ID: [email or web address]
[2018-03-12] MEDS ORDERED: NALBUPHINE HCL INJ 10 MG/1 ML AMPULE ONE (11:32)
[2018-03-12] MEDS ORDERED: NALBUPHINE HCL INJ 10 MG/1 ML AMPULE INJ ONE (12:00)
[2018-03-12] MEDS ORDERED: FENTANYL/BUPIVACAINE/NS/PF 300 MCG/150 ML RTUINJ EPI ONE (12:13)
[2018-03-12] MEDS ORDERED: EPHEDRINE SULFATE INJ 50 MG/1 ML AMPULE ONE (12:13)
[2018-03-12] MEDS ORDERED: BUPIVACAINE HCL 0.5 % INJ/PF 30 ML SDV ONE (12:14)
--- NOTE | 2018-03-12 13:30 | L&D Progress Notes ---
PROGRESS NOTES Datetime Report Generated by CPN: 03/12/2018 13:30 PROGRESS NOTE Procedures: Sterile Vag Exam Plan: Augmentation Comment: comfortable on left side, VE 8/vtx/-1, SROM with mec, + Mod mec, Cat 2, variable deceleration with SROM, uc's q 2-3, anticipate FETUS C SIGNATURE: 13,[id number];14,[id number];10,[id number] Assignment: Harpreet Martinez MD Signature: with User ID: [email or web address] : with User ID: [email or web address]
--- NOTE | 2018-03-12 15:59 | L&D Progress Notes ---
PROGRESS NOTES Datetime Report Generated by CPN: 03/12/2018 15:59 PROGRESS NOTE Impression: Reassuring Heart Rate Procedures: Sterile Vag Exam Plan: Continue Present Management; Augmentation Comment: epidural off for 1 hour, uc's q 2-4 x 60 sec, VE thick rim, head not well applied, 0 to -1 position changed, will sit up in bed, variables with each uc Mod mec, Cat 2, moderate variability FETUS C SIGNATURE: [id number];14,[id number];13,[id number] Assignment: Harpreet Martinez MD Signature: with User ID: [email or web address] : with User ID: [email or web address]
[2018-03-12] MEDS ORDERED: CEFAZOLIN 2 GM/D5W RTU 2 GM/50 ML RTUPB IV ONE (16:43)
[2018-03-12] MEDS ORDERED: LIDOCAINE 2% INJ-PF (20 MG/ML) 10 ML AMPUL ONE (16:43)
[2018-03-12] MEDS ORDERED: CITRIC ACID/SODIUM CITRATE ORAL SOLN 15 ML UDCUP ONE (16:43)
--- NOTE | 2018-03-12 16:43 | L&D Progress Notes ---
PROGRESS NOTES Datetime Report Generated by CPN: 03/12/2018 16:43 PROGRESS NOTE Comment: Standing up in bed and squatting with pushing, complete but remains high, Cat 2 with variables and mod variability, Pitocin off, Dr Martinez notified, pushing off and on x 2.5 hours, C/S called. Informed consent with transmitter tester and pt agrees and will proceed with C/S, hsb and friend at BS, anesthesia and nursery notified FETUS C SIGNATURE: [id number];14,[id number];10,[id number] Assignment: Harpreet Martinez MD Signature: with User ID: [email or web address] : with User ID: [email or web address]
[2018-03-12] MEDS ORDERED: KETOROLAC TROMETHAMINE INJ/PF 30 MG/1 ML SDV ONE (16:55)
[2018-03-12] MEDS ORDERED: OXYTOCIN 10 UNIT/ML VIAL ONE ×2 (16:55→17:52)
[2018-03-12] MEDS ORDERED: MIDAZOLAM 2 MG/2 ML INJ ONE (16:56)
[2018-03-12] MEDS ORDERED: ACETAMINOPHEN 1,000 MG/100 ML RTUPB IV ONE (16:56)
[2018-03-12] MEDS ORDERED: METHYLERGONOVINE MALEATE INJ/PF 0.2 MG/1 ML AMPULE ONE (16:56)
[2018-03-12] MEDS ORDERED: ONDANSETRON HCL INJ/PF 4 MG/2 ML SDV ONE (16:56)
[2018-03-12] MEDS ORDERED: FENTANYL CITRATE INJ/PF 100 MCG/2 ML AMPUL ONE (16:56)
[2018-03-12] MEDS ORDERED: NORMAL SALINE 250 ML IV PRN ×2 (17:52)
[2018-03-12] MEDS ORDERED: CARBOPROST TROMETHAMINE INJ 250 MCG/1 ML AMPULE ONE (17:57)
[2018-03-12] MEDS ORDERED: LOPERAMIDE HCL 2 MG CAPSULE ONE (17:58)
[2018-03-12] MEDS ORDERED: OXYCODONE-ACETAMINOPHEN 5-325 MG TABLET PO PRN ×3 (18:13→18:20)
[2018-03-12] MEDS ORDERED: FENTANYL CITRATE INJ/PF 100 MCG/2 ML AMPUL IV PRN ×3 (18:13)
[2018-03-12] MEDS ORDERED: DIPHENHYDRAMINE HCL 50 MG/ML VIAL IV PRN (18:13)
[2018-03-12] MEDS ORDERED: MORPHINE SULFATE 10 MG/ML INJ IV PRN (18:13)
[2018-03-12] MEDS ORDERED: ONDANSETRON HCL INJ/PF 4 MG/2 ML SDV IV PRN (18:13)
[2018-03-12] MEDS ORDERED: MEPERIDINE HCL/PF INJ 25 MG/1 ML DISP.SYRIN IV PRN (18:13)
[2018-03-12] MEDS ORDERED: PROMETHAZINE HCL INJ 25 MG/1 ML VIAL IV PRN ×3 (18:13→18:20)
[2018-03-12] MEDS ORDERED: OXYTOCIN/NORMAL SALINE 20 UNIT/1,000 ML RTUINJ IV PRN (18:20)
[2018-03-12] MEDS ORDERED: DIPH/PERTUSS(ACELL)/TETANUS VAC/PF 0.5 ML SYR (>=10YO) IM PRN (18:20)
[2018-03-12] MEDS ORDERED: ACETAMINOPHEN 1,000 MG/100 ML RTUPB IV PRN (18:20)
[2018-03-12] MEDS ORDERED: SIMETHICONE 80 MG TAB.CHEW PO PRN (18:20)
[2018-03-12] MEDS ORDERED: ACETAMINOPHEN 325 MG TABLET PO PRN (18:20)
[2018-03-12] MEDS ORDERED: MORPHINE SULFATE 10 MG/ML INJ IM PRN (18:20)
[2018-03-12] MEDS ORDERED: MEASLES,MUMPS&RUBELLA VACC/PF 0.5 ML VIAL SUBCUT PRN (18:20)
--- NOTE | 2018-03-12 18:24 | PDOC DELIVERY SUMMARY ---
Delivery Summary - Maternal Ruptured Membranes: AROM Fluids: Clear - Delivery Labor: Augmentation Presentation: Vertex Heart Rate Monitoring: Done Pre-Operatively Uterine Contraction Monitoring: External Support Person Present: Yes : Primary, Emergency Number of Vessels (Cord): 3 - Medications Type of Anesthesia:: Epidural
--- NOTE | 2018-03-12 18:26 | OPERATIVE REPORT E ---
Operative Report NAME: SHELLI BLOOD : 1990 AGE: 27Y DATE OF SURGERY: 03/12/2018 ROOM: LR200 PREOPERATIVE DIAGNOSIS: INTRAUTERINE AT POST DATES WITH FAILURE TO DESCEND. POSTOPERATIVE DIAGNOSIS: INTRAUTERINE AT POST DATES WITH FAILURE TO DESCEND. OPERATION: Primary low transverse with delivery of viable male, 10 pounds 4 ounces. Apgars 8-9. ESTIMATED BLOOD LOSS: Less than 1500 mL. TISSUE REMOVED: Placenta. SURGEON: Artis SAWANT M.D. ANESTHESIA: Epidural. PROCEDURE: The patient was placed in a supine position and was prepped and draped in sterile fashion. Pfannenstiel incision was made. Incision extended through the subcutaneous tissues to the fascia. The fascia was divided, rectus muscles bluntly and sharply divided. Parietal peritoneum was entered with sharp dissection. Uterus nicked in the midline and extended bilaterally. The infant was well into the pelvis, and after a couple of attempts, the head was elevated and the baby delivered through the uterine and abdominal incisions. The uterus had a tear down the left sidewall down into the lower uterine segment, and with careful dissection and repair, this was closed in multiple layers. Hemostasis was finally noted. The fascia was then closed with 0 Vicryl and the skin was closed with silvana. The patient was taken to the recovery room in good condition. DICTATING PHYSICIAN: Artis SAWANT M.D. [id number] PHY#: [id number] ID: [id number] JOB#: [id number] ACCT: [id number] cc:Artis SAWANT M.D. >
[2018-03-12 18:32] LABS: ABSOLUTE LYMPHOCYTES (AUTO) 1.2 10^3/uL (0.5-4.7); ABSOLUTE MONOCYTES (AUTO) 0.7 10^3/uL (0.1-1.4); ABSOLUTE NEUT (AUTO) 9.4 10^3/uL (1.7-8.2); BASOPHILS % (AUTO) 0.4 % (0-2); HEMATOCRIT 33.4 % (36.0-47.0); LYMPHOCYTES % (AUTO) 10.3 % (13-45); MEAN CORPUSCULAR HEMOGLOBIN 29.1 pg (27.0-33.4); MEAN CORPUSCULAR VOLUME 86 fl (80-97); MONOCYTES % (AUTO) 6.5 % (3-13); PLATELET COUNT 103 10^3/uL (150-450); RED CELL DISTRIBUTION WIDTH 16.7 % (11.5-14.0); SEGMENTED NEUTROPHILS % (AUTO) 82.8 % (42-78); TOTAL CELLS COUNTED % (AUTO) 100 %
[2018-03-12 18:33] LABS: WHITE BLOOD COUNT 11.4 10^3/uL (4.0-10.5)
[2018-03-12 18:34] LABS: HEMOGLOBIN 11.4 g/dL (12.0-15.5)
[2018-03-12] MEDS ORDERED: HYDROMORPHONE HCL INJ/PF 2 MG/ML AMPULE IV PRN ×2 (18:44→21:11)
[2018-03-12] MEDS ORDERED: HYDROMORPHONE HCL INJ/PF 2 MG/ML AMPULE ONE (18:45)
[2018-03-12] MEDS ORDERED: DIPHENHYDRAMINE HCL 50 MG/ML VIAL ONE (22:21)
[2018-03-12] MEDS ORDERED: NALOXONE HCL INJ/PF 0.4 MG/1 ML SDV ONE (22:47)
[2018-03-12 22:59] LABS: ABSOLUTE LYMPHOCYTES (AUTO) 0.9 10^3/uL (0.5-4.7); ABSOLUTE MONOCYTES (AUTO) 0.7 10^3/uL (0.1-1.4); ABSOLUTE NEUT (AUTO) 10.7 10^3/uL (1.7-8.2); BASOPHILS % (AUTO) 0.1 % (0-2); HEMATOCRIT 33.6 % (36.0-47.0); HEMOGLOBIN 11.6 g/dL (12.0-15.5); MEAN CORPUSCULAR HEMOGLOBIN 29.7 pg (27.0-33.4); MEAN CORPUSCULAR HGB CONC 34.6 g/dL (32.0-36.0); MEAN CORPUSCULAR VOLUME 86 fl (80-97); MONOCYTES % (AUTO) 5.8 % (3-13); RED BLOOD COUNT 3.92 10^6/uL (3.72-5.28); RED CELL DISTRIBUTION WIDTH 15.9 % (11.5-14.0); SEGMENTED NEUTROPHILS % (AUTO) 87.1 % (42-78); TOTAL CELLS COUNTED % (AUTO) 100 %; WHITE BLOOD COUNT 12.3 10^3/uL (4.0-10.5)
[2018-03-12 23:05] LABS: INTERNATIONAL RATION (INR) 0.93; PROTHROMBIN TIME 12.9 SEC (11.4-15.4)
[2018-03-12 23:06] LABS: PARTIAL THROMBOPLASTIN TIME 29.3 SEC (23.5-35.8); PLATELET COUNT 98 10^3/uL (150-450)
[2018-03-13] MEDS: PENICILLIN G POTASSIUM 2,500,000 UNIT in DEXTROSE 5%-WATER 50 ML IV SCH ×5 (00:50→05:41)
[2018-03-13] MEDS: RINGERS SOLUTION,LACTATED 1,000 ML IV PRN (02:52)
[2018-03-13] MEDS: KETOROLAC TROMETHAMINE INJ/PF 30 MG/1 ML SDV IV SCH ×2 (03:38→11:07)
[2018-03-13] MEDS: OXYCODONE-ACETAMINOPHEN 5-325 MG TABLET PO PRN ×4 (07:41→23:14)
[2018-03-13 07:49] LABS: HEMATOCRIT 28.6 % (36.0-47.0); MEAN CORPUSCULAR HEMOGLOBIN 30.3 pg (27.0-33.4); MEAN CORPUSCULAR HGB CONC 34.9 g/dL (32.0-36.0); MEAN CORPUSCULAR VOLUME 87 fl (80-97); RED CELL DISTRIBUTION WIDTH 16.2 % (11.5-14.0); WHITE BLOOD COUNT 9.1 10^3/uL (4.0-10.5)
[2018-03-13 08:15] LABS: PLATELET COUNT 75 10^3/uL (150-450)
--- NOTE | 2018-03-13 09:27 | PDOC PROGRESS REPORT ---
Subjective-OB Progress Note for:: 03/13/18 Subjective: POD #1 Primary w/ PPH, Pt transfused one unit of PRBC yesterday. Hgb 10.0 this morning. Doing well today. B+ Rubella Immune. Physical Exam (OB) Vital Signs: Temp Pulse Resp BP Pulse Ox 99.3 F 77 15 123/75 97 03/13/18 08:11 03/13/18 08:11 03/13/18 08:11 03/13/18 08:11 03/13/18 08:11 Intake & Output 03/12/18 03/13/18 03/14/18 06:59 06:59 06:59 Intake Total 2190 Output Total 600 Balance 1590 Weight 74.9 kg - General General Appearance: Appears well, Alert In distress: None - PIH/Pre-Eclampsia DTR's: 1 + Clonus: Negative Headache: Absent Epigastric Pain: No Visual Changes: No - Dressing Removed: No Incision: Dressing Closure Type: OP Site - Lochia Lochia Amount: Scant < 10 ml Lochia Color: Rubra/Red - Abdomen Description: Soft, Round Hernia Present: No Fundal Description: Firm, Midline Fundal Height: u/u - u/2 > 4/u*- Describe: pt refused fundal rub - HEENT Head: Normocephalic Eyes: Normal - Respiratory Respiratory Status: No respiratory distress Chest Status: Nontender Breath sounds: Clear - Cardiovascular Rhythm: Regular - Abdominal Inspection: Normal Distension: No distension Abdominal Notes: +bowel sounds - Genitourinary Genitourinary Note: alicea cath draining - Extremities Upper extremity: Normal inspection Lower extremities: Normal inspection - Neurological Cognition: Normal Orientation: AAOx4 - Psychological Associated symptoms: Normal affect, Normal mood - Skin Skin Temperature: Warm Skin Moisture: Dry Objective-Diagnostic Laboratory: 03/13/18 07:29 03/12/18 03/12/18 03/12/18 06:35 18:19 22:46 WBC 11.4 H D 12.3 H RBC 3.90 3.92 Hgb 11.4 L D 11.6 L Hct 33.4 L 33.6 L MCV 86 86 MCH 29.1 29.7 MCHC 34.0 34.6 RDW 16.7 H 15.9 H Plt Count 103 L 98 L Seg Neutrophils % 82.8 H 87.1 H Lymphocytes % 10.3 L 7.0 L Monocytes % 6.5 5.8 Eosinophils % 0.0 0.0 Basophils % 0.4 0.1 Absolute Neutrophils 9.4 H 10.7 H Absolute Lymphocytes 1.2 0.9 Absolute Monocytes 0.7 0.7 Absolute Eosinophils 0.0 0.0 Absolute Basophils 0.0 0.0 Blood Type O POSITIVE Antibody Screen NEGATIVE 03/13/18 07:29 WBC 9.1 RBC 3.30 L Hgb 10.0 L Hct 28.6 L MCV 87 MCH 30.3 MCHC 34.9 RDW 16.2 H Plt Count 75 L Seg Neutrophils % Lymphocytes % Monocytes % Eosinophils % Basophils % Absolute Neutrophils Absolute Lymphocytes Absolute Monocytes Absolute Eosinophils Absolute Basophils Blood Type Antibody Screen Assessment and Plan(PN) - Assessment and Plan (1) Macrosomia of fetus affecting management of mother Qualifiers: Fetus number: single or unspecified fetus Trimester: third trimester Qualified Code(s): O36.63X0 - Maternal care for excessive growth, third trimester, not applicable or unspecified Is this a current diagnosis for this admission?: Yes (2) S/P primary low transverse Is this a current diagnosis for this admission?: Yes (3) Acute blood loss anemia Is this a current diagnosis for this admission?: Yes (4) Retained placenta or membranes without hemorrhage Is this a current diagnosis for this admission?: Yes (5) Vaginal delivery Is this a current diagnosis for this admission?: Yes - Time Spent with Patient Time with patient: Less than 15 minutes Medications reviewed and adjusted accordingly: Yes - Disposition Anticipated Discharge: Home Within: within 48 hours - Used the Language Line and spoke to patient via an interpretor, questions answered, plan of care discussed. Ambulation encourged
[2018-03-13] MEDS: PRENATAL VITAMIN W DHA CAPSULE PO SCH (10:12)
[2018-03-13] MEDS: DOCUSATE SODIUM 100 MG CAPSULE PO SCH ×2 (10:12→18:14)
[2018-03-13] MEDS: PENICILLIN G-K 5 MILLION UNIT VIAL IV SCH ×3 (11:06→15:41)
[2018-03-13] MEDS ORDERED: DIPHENHYDRAMINE HCL 25 MG CAPSULE ONE (13:45)
[2018-03-13] MEDS: IBUPROFEN 800 MG TABLET PO SCH (15:41)
[2018-03-14] MEDS: IBUPROFEN 800 MG TABLET PO SCH ×4 (04:05→21:06)
[2018-03-14] MEDS: OXYCODONE-ACETAMINOPHEN 5-325 MG TABLET PO PRN ×3 (04:10→15:24)
--- NOTE | 2018-03-14 08:23 | Delivery Summary ---
Del Sum A-C Datetime Report Generated by CPN: 03/14/2018 08:22 DELIVERY PERSONNEL DELIVERY PERSONNEL: [id number] Delivery Doctor:: Harpreet Martinez MD Delivery Doctor:: Harpreet Martinez MD Anesthesiologist:: Tavo Vale MD Anesthesiologist:: Tavo Vale MD MANAGER EXCHANGE:: Nat Zuniga CRNA MANAGER EXCHANGE:: Nat Zuniga CRNA Labor and Delivery Nurse:: Aki Dominguez RNacid polymerization operator Nurse:: Ladi Mathews RN Hardboard Coating Machine Operator:: Aki Dominguez RN Hardboard Coating Machine Operator:: Aki Dominguez RN Vehicle Delivery Worker:: Dr. Sj Villeda [place] Nurse:: Li Chavez RN Presentation Specialist/TABLET REPAIR: Rosario Murphy CST Presentation Specialist/TABLET REPAIR: Luba Valverde CST Presentation Specialist/TABLET REPAIR: Luba Valverde CST Presentation Specialist/TABLET REPAIR: Rosario Murphy SEWING MACHINE OPERATOR SEMIAUTOMATIC MATERNAL INFORMATION Delivery Anesthesia: Epidural Medications After Delivery: Pitocin Bolus-Please Comment; Pitocin Drip 20 Units/1000ml NSS; Methergine 0.2mg IM; Other-Please Comment Meds After Delivery Comment: Hembate 250 mg Maternal Complications: None Provider Comments: uterine tear down the left into the lowr uterine segment LABOR SUMMARY EDC: 03/06/2018 00:00 No. Babies in Womb: 1 Attempted: No Labor Anesthesia: Epidural LABOR INFORMATION Reason for Induction: Not Applicable Onset of Labor: 03/12/2018 13:23 Complete Dilatation: 03/12/2018 16:28 Oxytocin: Augmentation Group B Beta Strep: Negative Antibiotics # of Doses: 2 Antibiotics Time of Last Dose: 622, 165 Name of Antibiotic Given: PENICILLIN G, ANCEF Steroids Given: None Reason Steroids Not Administered: Not Applicable MEMBRANES Membranes Rupture Method: Spontaneous Rupture of Membranes: 03/12/2018 13:23 Length of Rupture (hr): 4.08 Amniotic Fluid Color: Moderate Meconium Amniotic Fluid Amount: Large Amniotic Fluid Odor: Normal STAGES OF LABOR Stage 1 hr: 3 Stage 1 min: 5 Stage 2 hr: 1 Stage 2 min: 0 Stage 3 hr: 0 Stage 3 min: 1 Total Time in Labor hr: 4 Total Time in Labor min: 6 VAGINAL DELIVERY Episiotomy: None Laceration #1: None Laceration Extension #1: N/A Laceration Repair: Not Applicable Sponge Count Correct: N/A Sharps Count Correct: N/A CSECTION DELIVERY Primary Indication: Failure of Descent Secondary Indication: Other Other Secondary Indication: VARIABLES CSection Urgency: Non-Scheduled CSection Incidence: Primary Labor: Labor Elective: Nonelective CSection Incision: Lower Uterine Transverse BABY A INFORMATION Delivery Date/Time: 03/12/2018 17:28 Method of Delivery: Born in Route : No : N/A Forceps: N/A Vacuum Extraction: N/A Shoulder Dystocia : No PRESENTATION/POSITION BABY A Presentation: Cephalic Cephalic Presentation: Vertex Vertex Position: OA Breech Presentation: N/A PLACENTA INFORMATION BABY A Placenta Delivery Time : 03/12/2018 17:29 Placenta Method of Delivery: Manual Removal Placenta Status: Delivered SCORES BABY A Heart Rate 1 min: >100 bpm Resp Effort 1 min: Good Cry Reflex Irritability 1 min: Cough or Sneeze or Pulls Away Muscle Tone 1 min: Some Flexion of Extremities Color 1 min: Body [place], Extremities Blue Resuscitation Effort 1 min: Tactile Stimulation SCORE 1 MIN: 8 Heart Rate 5 min: >100 bpm Resp Effort 5 min: Good Cry Reflex Irritability 5 min: Cough or Sneeze or Pulls Away Muscle Tone 5 min: Active Motion Color 5 min: Body [place], Extremities Blue Resuscitation Effort 5 min: Tactile Stimulation SCORE 5 MIN: 9 INFORMATION BABY A Gestational Age at Delivery: 40.6 Gestational Status: Full Term- 39- 40.6 Weeks Infant Outcome : Liveborn Condition : Stable Sex: Male IDENTIFICATION BABY A Verification Date/Time: 03/12/2018 17:32 ID Band Number: [id number] Mother's Name Verified: Yes Infant RN Verifying Infant: Cony Dominguez, RN and Jil Allison, RN WEIGHT/LENGTH BABY A Birthweight (gm): 4640 Infant Weight (lb): 10 Weight (oz): 4 Infant Length (in): 21.00 Infant Length (cm): 53.34 CORD INFORMATION BABY A No. Cord Vessels: 3 Nuchal Cord : Around Neck x1, Loose Cord Blood Taken: Yes-For Eval (Mom's Blood Type - or O+) Suction: None ASSESSMENT BABY A Complications: Multiple Variable Decels; Meconium Physical Findings at Delivery: Caput Succedaneum Skin to Skin: No Vehicle Delivery Worker/ALS Called : Yes Care By: AdanAriane Scott Transferred To: Nursery BABY B INFORMATION : N/A SIGNATURES Signature: with User ID: [email or web address]
[2018-03-14] MEDS: PENICILLIN G-K 5 MILLION UNIT VIAL IV SCH ×5 (09:58→23:57)
[2018-03-14] MEDS: PRENATAL VITAMIN W DHA CAPSULE PO SCH (09:58)
[2018-03-14] MEDS: DOCUSATE SODIUM 100 MG CAPSULE PO SCH ×2 (09:58→18:50)
--- NOTE | 2018-03-14 10:55 | PDOC PROGRESS REPORT ---
Subjective-OB Progress Note for:: 03/14/18 Subjective: Pt c/o pain at incision site. Grimacing. Reports regular diet, light bleeding, voiding without difficulty and + flatus. According to RN, she has not been holding baby very much and has not been very active, although she is ambulating to the restroom. present at bedside. Rosita used for communication. Physical Exam (OB) Vital Signs: Temp Pulse Resp BP Pulse Ox 98.7 F 88 16 120/77 97 03/14/18 08:10 03/14/18 08:10 03/14/18 08:10 03/14/18 08:10 03/14/18 08:10 Intake & Output 03/13/18 03/14/18 03/15/18 06:59 06:59 06:59 Intake Total 2190 2350 Output Total 600 1575 Balance 1590 775 - Dressing Removed: Yes Incision: Open Closure Type: Surgical Glue - Abdomen Description: Soft, Round Hernia Present: No Fundal Description: Firm, Midline Fundal Height: u/u - u/2 > 4/u*- Describe: pt refused fundal rub Objective-Diagnostic Laboratory: 03/13/18 07:29 Assessment and Plan(PN) - Assessment and Plan (1) Macrosomia of fetus affecting management of mother Qualifiers: Fetus number: single or unspecified fetus Trimester: third trimester Qualified Code(s): O36.63X0 - Maternal care for excessive growth, third trimester, not applicable or unspecified Is this a current diagnosis for this admission?: Yes (2) S/P primary low transverse Is this a current diagnosis for this admission?: Yes (3) Acute blood loss anemia Is this a current diagnosis for this admission?: Yes Plan:: Re-evaluate for discharge tomorrow, as her pain is not well controlled and to monitor for bonding with baby. - Time Spent with Patient Time with patient: 15-25 minutes Medications reviewed and adjusted accordingly: Yes - Disposition Anticipated Discharge: Home Within: within 24 hours
[2018-03-15] MEDS: IBUPROFEN 800 MG TABLET PO SCH (05:36)
[2018-03-15] MEDS: PENICILLIN G-K 5 MILLION UNIT VIAL IV SCH ×2 (05:47→09:02)
[2018-03-15] MEDS ORDERED: IBUPROFEN 800 MG TABLET PO SCH ×2 (06:00→12:00)
[2018-03-15 06:33] LABS: ABSOLUTE EOSINOPHILS # (AUTO) 0.1 10^3/uL (0.0-0.6); ABSOLUTE MONOCYTES (AUTO) 0.5 10^3/uL (0.1-1.4); ABSOLUTE NEUT (AUTO) 5.6 10^3/uL (1.7-8.2); BASOPHILS % (AUTO) 0.3 % (0-2); EOSINOPHILS % (AUTO) 1.3 % (0-6); HEMATOCRIT 23.3 % (36.0-47.0); HEMOGLOBIN 8.3 g/dL (12.0-15.5); LYMPHOCYTES % (AUTO) 14.4 % (13-45); MEAN CORPUSCULAR HEMOGLOBIN 30.8 pg (27.0-33.4); MEAN CORPUSCULAR HGB CONC 35.6 g/dL (32.0-36.0); MEAN CORPUSCULAR VOLUME 86 fl (80-97); MONOCYTES % (AUTO) 6.5 % (3-13); PLATELET COUNT 125 10^3/uL (150-450); RED BLOOD COUNT 2.69 10^6/uL (3.72-5.28); RED CELL DISTRIBUTION WIDTH 16.7 % (11.5-14.0); SEGMENTED NEUTROPHILS % (AUTO) 77.5 % (42-78); TOTAL CELLS COUNTED % (AUTO) 100 %; WHITE BLOOD COUNT 7.3 10^3/uL (4.0-10.5)
[2018-03-15 09:32] VITALS: BP 123/68
[2018-03-15] MEDS: PRENATAL VITAMIN W DHA CAPSULE PO SCH (10:03)
[2018-03-15] MEDS: DOCUSATE SODIUM 100 MG CAPSULE PO SCH (10:03)
--- NOTE | 2018-03-15 10:19 | PDOC DISCHARGE SUMMARY ---
Final Diagnosis Discharge Date: 03/15/18 - Final Diagnosis (1) hemorrhage Is this a current diagnosis for this admission?: Yes (2) Blood transfusion during current hospitalization Is this a current diagnosis for this admission?: Yes (3) Limited care Is this a current diagnosis for this admission?: Yes (4) Macrosomia of fetus affecting management of mother Is this a current diagnosis for this admission?: Yes (5) S/P primary low transverse Is this a current diagnosis for this admission?: Yes (6) Acute blood loss anemia Is this a current diagnosis for this admission?: Yes Discharge Data - Discharge Medication Prescriptions: Oxycodone HCl/Acetaminophen [Percocet 5-325 mg Tablet] 1 tab PO Q4HP PRN #30 tablet PRN Reason: For Pain Scale 3-5 Ibuprofen [Motrin 800 mg Tablet] 800 mg PO Q8HP PRN #60 tablet PRN Reason: For Pain Scale 1-2 Docusate Sodium [Colace 100 mg Capsule] 100 mg PO BID #60 capsule Ferrous Sulfate [Feosol 325 mg Tablet] 325 mg PO TID #90 tablet Home Medications: Vits96/Iron Fum/Folic [ Tablet] 1 tab PO DAILY 02/15/18 Docusate Sodium [Colace 100 mg Capsule] 100 mg PO BID #60 capsule 03/15/18 Ferrous Sulfate [Feosol 325 mg Tablet] 325 mg PO TID #90 tablet 03/15/18 Ibuprofen [Motrin 800 mg Tablet] 800 mg PO Q8HP PRN #60 tablet 03/15/18 Oxycodone HCl/Acetaminophen [Percocet 5-325 mg Tablet] 1 tab PO Q4HP PRN #30 tablet 03/15/18 Reason(s) for Admission: Onset of Labor Procedures: Ultrasound Intrapartum Procedure(s): : Low Cervical, Transverse - Diagnosis Test Laboratory: Temp Pulse Resp BP Pulse Ox 98.2 F 100 18 119/69 98 03/15/18 08:03 03/15/18 08:03 03/15/18 08:03 03/15/18 08:03 03/15/18 08:03 03/12/18 03/12/18 03/12/18 05:36 06:35 18:19 RBC 4.72 3.90 Hgb 14.0 11.4 L D Hct 40.3 33.4 L Urine Opiates Screen NEGATIVE 03/12/18 03/13/18 03/15/18 22:46 07:29 06:18 RBC 3.92 3.30 L 2.69 L Hgb 11.6 L 10.0 L 8.3 L Hct 33.6 L 28.6 L 23.3 L Urine Opiates Screen - Discharge information/Instructions Discharge Activity: Activity As Tolerated, Balance Activity w/Rest, No Driving, No Lifting Over 10 Pounds, No Lifting/Push/Pulling, Pelvic Rest, Slowly Increase Activity, No tub bath, Walk Frequently Discharge Diet: As Tolerated, Regular Disposition: HOME, SELF-CARE Follow [facility]: [facility]: [facility], Days - incision check- Monday 8am
== END 2018-03-15 14:10 | disposition home or self-care (01) | DRG 787 ==
LOC: LC 05:25 → LR 06:13 → 2S 20:37
PROVIDERS: ADMIT Obstetrics & Gynecology; ATTEND Obstetrics & Gynecology
PROC: 10D00Z1 Extraction of Products of Conception, Low, Open Approach (ICD-10-PCS; principal; 2018-03-12)
PROC: 30233N1 Transfusion of Nonautologous Red Blood Cells into Peripheral Vein, Percutaneous Approach (ICD-10-PCS; 2018-03-12)
PROC: 4A1HXCZ Monitoring of Products of Conception, Cardiac Rate, External Approach (ICD-10-PCS; 2018-03-12)
DX: O48.0 Post-term pregnancy (principal); O72.1 Other immediate postpartum hemorrhage; D62 Acute posthemorrhagic anemia; O36.63X0 Maternal care for excessive fetal growth, third trimester, not applicable or unspecified; O90.81 Anemia of the puerperium; O99.314 Alcohol use complicating childbirth; O77.0 Labor and delivery complicated by meconium in amniotic fluid; O32.4XX0 Maternal care for high head at term, not applicable or unspecified; O69.81X0 Labor and delivery complicated by cord around neck, without compression, not applicable or unspecified; Z72.89 Other problems related to lifestyle; Z37.0 Single live birth; Z3A.40 40 weeks gestation of pregnancy
CPT/HCPCS: 1961; 36415; 36430; 80307; 81005; 83036; 85025; 85027; 85610; 85730; 86592; 86850; 86900; 86901; 86920; 94760; J0131; J0690; J1170; J1200; J1885; J2210; J2250; J2270; J2300; J2405; J2540; J2590; J3010; J3490; J7120; P9016

== ENCOUNTER 2018-06-11 07:04 | Emergency (ER) | payer MEDICAID ==
[2018-06-11] MEDS ORDERED: NORMAL SALINE 1000 ML 1,000 ML IV ONE (07:32)
[2018-06-11] MEDS ORDERED: DIPHENHYDRAMINE HCL 50 MG/ML VIAL IV ONE (07:32)
[2018-06-11] MEDS ORDERED: METOCLOPRAMIDE HCL INJ/PF 10 MG/2 ML SDV IV ONE (07:33)
--- NOTE | 2018-06-11 08:03 | ER Document Report ---
ED General - General Chief Complaint: Headache Stated Complaint: HEADACHE Time Seen by Provider: 06/11/18 07:29 Mode of Arrival: Ambulatory Notes: 27-year-old Croatian-speaking female presents the emergency department for "hearing noise." A net washer through [employer] was used to obtain history and physical. Patient states that she gave in February and since then she has been hearing a noise in her head. She states that she is depressed. She is missing her other children who are in [place]. She has not been eating or sleeping. She states that the "noise" has been worsening over the last week. It is getting louder. Patient states that she was up all last night crying. She denies the noise being voices. She states that the noise is not telling her to hurt herself, the baby, anyone else. Patient states that she has had depression in the past and has been on medication for this. Patient does not have a primary care physician in the area. She does not go to a therapist. She does not remember who her CAR TESTER was. Patient denies any medical problems. Only surgical history is remarkable for previous C-sections. Patient denies being on any medications. She is complaining of some suprapubic pain. She states that her vaginal bleeding stopped 2 weeks ago. TRAVEL OUTSIDE OF THE U[place] IN LAST 30 DAYS: No - HPI Onset: Other - 3 months Onset/Duration: Constant Quality of pain: No pain Severity: None Pain Level: Denies Associated symptoms: Other - abdominal pain Exacerbated by: Denies Relieved by: Denies Similar symptoms previously: Yes Recently seen / treated by doctor: No - Related Data Allergies/Adverse Reactions: hydromorphone [From Dilaudid] Allergy (Severe, Verified 03/15/18 00:19) Anaphylaxis morphine Allergy (Severe, Verified 03/15/18 00:19) Anaphylaxis Past Medical History - General Information source: Patient - Social History Smoking Status: Never Smoker Family History: Reviewed & Not Pertinent - Immunizations Immunizations up to date: Yes Hx Diphtheria, Pertussis, Tetanus Vaccination: Yes Review of Systems - Review of Systems Constitutional: No symptoms reported EENT: No symptoms reported Cardiovascular: No symptoms reported Respiratory: No symptoms reported Gastrointestinal: No symptoms reported Genitourinary: No symptoms reported Female Genitourinary: No symptoms reported Musculoskeletal: No symptoms reported Skin: No symptoms reported Hematologic/Lymphatic: No symptoms reported Neurological/Psychological: Depression -: Yes All other systems reviewed and negative Physical Exam - Vital signs Vitals: Temp Pulse Resp BP Pulse Ox 98.6 F 63 20 116/77 100 06/11/18 07:06 06/11/18 07:06 06/11/18 07:06 06/11/18 07:06 06/11/18 07:06 - Notes Notes: PHYSICAL EXAMINATION: GENERAL: Tearful HEAD: Atraumatic, normocephalic. EYES: Pupils equal round and reactive to light, extraocular movements intact, conjunctiva are normal. ENT: Nares patent, oropharynx clear without exudates. Moist mucous membranes. NECK: Normal range of motion, supple without lymphadenopathy LUNGS: Breath sounds clear to auscultation bilaterally and equal. No wheezes rales or rhonchi. HEART: Regular rate and rhythm without murmurs ABDOMEN: Soft, Tenderness to palpation in the suprapubic area. No rebound or guarding. Normal active bowel sounds. scar is clean, dry, intact, healing well. Female : Thick white discharge seen. Cervical os closed. No ovarian tenderness. No cervical motion tenderness. Musculoskeletal: Normal range of motion, no pitting or edema. No cyanosis. NEUROLOGICAL: Cranial nerves grossly intact. Normal speech, normal gait. Normal sensory, motor exams PSYCH: Normal mood, normal affect. SKIN: Warm, Dry, normal turgor, no rashes or lesions noted. Course - Re-evaluation Re-evalutation: 06/11/18 08:16 EKG: Ventricular rate 67, NM interval 180, QRS duration 82, QTc 414. No ST segment elevation. 06/11/18 15:20 06/11/18 15:22 Labs and imaging obtained. Labs are remarkable for bacterial vaginosis. Imaging was obtained. Patient does have a left ovarian cyst. This is what could be causing her discomfort. I will give her a prescription for Flagyl. Behavioral health saw and evaluated the patient. They recommend starting the patient on Zyprexa. They recommend 2.5 mg twice daily. I will discharge the patient home with a prescription for Zyprexa. She was instructed to follow-up with a primary care physician and [facility] this week. Patient told to return to the emergency department if she is having worsening, thoughts of h arming herself, thoughts of harming the baby, thoughts of harming anyone else. Patient is agreeable with plan of care. - Vital Signs Vital signs: Temp Pulse Resp BP Pulse Ox 98.6 F 63 20 116/77 100 06/11/18 07:06 06/11/18 07:06 06/11/18 07:06 06/11/18 07:06 06/11/18 07:06 - Laboratory Result Diagrams: 06/11/18 08:10 06/11/18 08:10 Laboratory results interpreted by me: 06/11/18 06/11/18 06/11/18 08:10 08:10 08:20 RDW 14.2 H Creatinine 0.43 L Ur Leukocyte Esterase LARGE H Salicylates < 1.0 L Acetaminophen < 10 L Discharge - Discharge Clinical Impression: depression Ovarian cyst Qualifiers: Laterality: left Qualified Code(s): N83.202 - Unspecified ovarian cyst, left side Condition: Good Disposition: HOME, SELF-CARE Instructions: Depression ([facility]), Ovarian Cyst ([facility]) Prescriptions: Metronidazole [Flagyl 500 mg Tablet] 500 mg PO BID #14 tablet Olanzapine [Zyprexa 2.5 Mg Tablet] 2.5 mg PO BID #28 tablet Referrals: LINDA WHITE MD [ACTIVE STAFF] - Follow up as needed Print Language: Croatian
[2018-06-11 08:17] LABS: ABSOLUTE EOSINOPHILS # (AUTO) 0.1 10^3/uL (0.0-0.6); ABSOLUTE LYMPHOCYTES (AUTO) 1.4 10^3/uL (0.5-4.7); ABSOLUTE MONOCYTES (AUTO) 0.5 10^3/uL (0.1-1.4); ABSOLUTE NEUT (AUTO) 3.3 10^3/uL (1.7-8.2); BASOPHILS % (AUTO) 0.5 % (0-2); EOSINOPHILS % (AUTO) 1.5 % (0-6); HEMATOCRIT 38.1 % (36.0-47.0); HEMOGLOBIN 13.3 g/dL (12.0-15.5); LYMPHOCYTES % (AUTO) 26.2 % (13-45); MEAN CORPUSCULAR HEMOGLOBIN 29.2 pg (27.0-33.4); MEAN CORPUSCULAR VOLUME 83 fl (80-97); MONOCYTES % (AUTO) 10.3 % (3-13); PLATELET COUNT 190 10^3/uL (150-450); RED BLOOD COUNT 4.57 10^6/uL (3.72-5.28); RED CELL DISTRIBUTION WIDTH 14.2 % (11.5-14.0); SEGMENTED NEUTROPHILS % (AUTO) 61.5 % (42-78); TOTAL CELLS COUNTED % (AUTO) 100 %; WHITE BLOOD COUNT 5.3 10^3/uL (4.0-10.5)
[2018-06-11 08:36] LABS: APPEARANCE,URINE SLIGHTLY-CLOUDY; BILIRUBIN,URINE NEGATIVE (NEGATIVE); COLOR,URINE YELLOW; GLUCOSE, URINE NEGATIVE (NEGATIVE); KETONES,URINE NEGATIVE (NEGATIVE); LEUKOCYTE ESTERASE,URINE LARGE (NEGATIVE); NITRITE,URINE NEGATIVE (NEGATIVE); PROTEIN,URINE NEGATIVE (NEGATIVE); URINE SPECIFIC GRAVITY 1.016; UROBILINOGEN,URINE NEGATIVE mg/dL (<2.0)
[2018-06-11 08:42] LABS: ALANINE AMINOTRANSFERASE 43 U/L (9-52); ALBUMIN 4.5 g/dL (3.5-5.0); ALKALINE PHOSPHATASE 103 U/L (38-126); ANION GAP 9 (5-19); ASPARTATE AMINO TRANSFERASE 26 U/L (14-36); BILIRUBIN,TOTAL 0.9 mg/dL (0.2-1.3); BLOOD UREA NITROGEN 10 mg/dL (7-20); CALCIUM 9.1 mg/dL (8.4-10.2); CARBON DIOXIDE 24 mmol/L (22-30); CHLORIDE 107 mmol/L (98-107); GLUCOSE 99 mg/dL (75-110); POTASSIUM 3.9 mmol/L (3.6-5.0); SODIUM 140.1 mmol/L (137-145); TOTAL PROTEIN 7.5 g/dL (6.3-8.2)
[2018-06-11 08:43] LABS: ACETAMINOPHEN < 10 ug/mL (10-30); ALCOHOL < 10 mg/dL (NONE DETECTED); SALICYLATE < 1.0 mg/dL (2.0-20.0)
[2018-06-11 08:54] LABS: URINE AMPHETAMINES SCREEN NEGATIVE; URINE BARBITURATES SCREEN NEGATIVE; URINE BENZODIAZEPINES SCREEN NEGATIVE; URINE COCAINE SCREEN NEGATIVE; URINE MARIJUANA (THC) SCREEN NEGATIVE; URINE METHADONE SCREEN NEGATIVE; URINE PHENCYCLIDINE SCREEN NEGATIVE
[2018-06-11 12:19] LABS: BACTERIA (WET MOUNT) 3+ BACTERIA SEEN; EPITHELIALS (WET MOUNT) 3+ EPITHELIALS SEEN; RBCS (WET MOUNT) NO RBCS SEEN; T.VAGINALIS (WET MOUNT) NO TRICHOMONAS SEEN; WBCS (WET MOUNT) 2+ WBCS SEEN; YEAST (WET MOUNT) NO YEAST SEEN
[2018-06-11] MEDS ORDERED: OLANZAPINE 2.5 MG TABLET PO ONE (13:14)
[2018-06-11 13:46] LABS: CHLAM PCR NOT DETECTED (NOT DETECT); GON PCR NOT DETECTED (NOT DETECT)
--- NOTE | 2018-06-11 13:56 | PSYCHOLOGICAL NOTE ---
Psych Note - Psych Note Date seen by psych provider: 06/11/18 Time seen by psych provider: 09:00 Psych Note: Reason for consult:FELICIANO, Depression Contact Permissions: Patient is a 27 yo Thai speaking female presenting to the ED with her for concerns of a headache and "noise in my head". Chart review shows no prior MH visits. With the assistance of [place], patient relays that she has been having trouble sleeping since February when her infant was born. She struggles to fall asleep and wakes easily many times through the night. She was up crying all last night and has depression sx's as follows: sad, weight gain, insomnia, difficulty with thinking, worthlessness, hopelessness, guilt, and shame. Patient is tearful, has other children and relays that she felt the same way in October 2016 with depression and heard noises after her daughter was born. The noise sounds like when something in your car is broken and is only heard at night and is not voices. She has not had any noises this morning but "thought I was going crazy earlier". Patient relays her primary concern as needing something to sleep/denies wanting to harm herself or anyone else. She was seen by [facility] for three months with medication and counseling in 2017/does not remember what was prescribed but endorses benefit. Patient is alert and oriented x 4. Mood is "good now" with smiling affect. Patient denies SI, HI, and AV/H, does not appear to be responding to internal stimuli, and no delusions were noted. Though soft spoken, conversational speech was WNL for rate, tone, and prosody. Eye contact was well maintained. Thought processes were linear, organized, and rational. Intellectual abilities were estimated within the average range. Attention/concentration was WNL while, insight, judgment, and impulse control were fair. Diagnosis: 311 (F32.9) Unspecified Depressive Disorder Medication recommendations as per psychiatric provider, Dr. Cates are as follows: Start Zyprexa 2.5mg bid Patient is psychiatrically clear from acute psychiatric services and recommended to hold for overnight observation and respite as patient c/o insomnia which is likely causing her AMS i.e. reported noises in her head. She as well reports anxiety and sadness stemming from separation from her children so if she would like to return home she may with doctor consent. 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 Plan is to discharge to home/Self-care as Patient denies SI, HI, and AV/H, does not appear to be responding to internal stimuli, and no delusions were noted. who is at bedside with her can assist with transportation to follow up at [facility] where patient was seen previously in 2017 for similar concerns. Behavioral Health made an appointment for this patient with [facility] (see case assembler note). Consulted Dr. Long in the care and treatment of this patient and ED physician who is in agreement with disposition and recommendation.
--- NOTE | 2018-06-11 15:18 | RADIOLOGY REPORT (SQ) ---
EXAM DESCRIPTION: U/S NON OB PEL W/DOPPLER COMPLETED DATE/TIME: 06/11/2018 2:31 pm REASON FOR STUDY: pelvic pain COMPARISON: None. TECHNIQUE: Dynamic and static grayscale images acquired of the pelvis via transabdominal approach an d recorded on PACS. Additional selected color Doppler and spectral images recorded. LIMITATIONS: None. FINDINGS: UTERUS: Contour normal. No mass. ENDOMETRIAL STRIPE: No focal or generalized thickening. No masses. CERVIX: No nabothian cysts. RIGHT OVARY AND DOPPLER: Not visualized sonographically due to overlying bowel gas. LEFT OVARY AND DOPPLER: Normal size. A 3.0 x 3.0 x 2.2 cm cyst. Normal arterial vascular flow witho ut evidence for torsion. FREE FLUID: None noted. OTHER: No other significant finding. MEASUREMENTS: UTERUS: 10.0 x 7.9 x 5.3 cm ENDOMETRIAL STRIPE: IUD within the endometrial cavity RIGHT OVARY: Not visualized LEFT OVARY: 3.6 x 3.7 x 3.5 cm IMPRESSION: 1. The right ovary is not visualized due to overlying bowel gas. 2. Left ovarian cyst. 3. IUD within the endometrial cavity. TECHNICAL DOCUMENTATION: JOB ID: [id number]- All Rights Reserved Rev-10/06 Reading location - IP/workstation name: [email or web address]
[2018-06-11 16:11] VITALS: BP 108/74
--- NOTE | 2018-06-11 18:25 | EKG REPORT ---
SEVERITY:- NORMAL ECG - SINUS RHYTHM : Confirmed by: Nina Romero MD 11-Jun-2018 18:25:29
== END 2018-06-11 16:03 | disposition home or self-care (01) ==
LOC: ER 07:04
DX: O99.345 Other mental disorders complicating the puerperium (principal); F53.0 Postpartum depression; O99.89 Other specified diseases and conditions complicating pregnancy, childbirth and the puerperium; N83.202 Unspecified ovarian cyst, left side; R51 Headache; R10.30 Lower abdominal pain, unspecified
CPT/HCPCS: 93005; 99285; 36415; 87210; 80307 ×4; 85025; 81025; 80053; 81001; 87491; 87591; 76856; 93976; 93010; J3490

== ENCOUNTER → 2019-06-18 | Outpatient (CLI) | payer SELFPAY ==
--- NOTE | 2019-06-18 11:27 | RADIOLOGY REPORT (SQ) ---
EXAM DESCRIPTION: U/S OB 14+ TRNABD 1GES W/O DOP COMPLETED DATE/TIME: 06/18/2019 9:12 am REASON FOR STUDY: ENCOUNTER FOR SUPERVISIONOF OTHER NORMAL Z34.82 ENCOUNTER FOR SUPRVSN O F NORMAL , SECOND TRI COMPARISON: None. TECHNIQUE: Transvaginal static and realtime grayscale images acquired of the pelvis. Additional judi cted spectral and color Doppler images recorded. All images stored on PACs. bHCG: Not available. CLINICAL DATES: Not Available. LIMITATIONS: None. FINDINGS: FETUS: Single Living intrauterine . ULTRASOUND EGA: 14 weeks 4 days ULTRASOUND RODOLFO: 12/13/2019 EFW: Not applicable less than 20 weeks. FHR: 149 beats per minute. SURVEY: No visualized anomalies. AMNIOTIC FLUID: Adequate amount. PLACENTA: Posterior. SUBCHORIONIC BLEED: No. SIZE OF BLEED: Not applicable. UTERUS: No masses. No anomalies. CERVICAL LENGTH: 3.7 cm. Closed. RIGHT ADNEXA: Normal ovary with normal vascular flow. No adnexal free fluid. No adnexal masses. LEFT ADNEXA: Normal ovary with normal vascular flow. No adnexal free fluid. No adnexal masses. FREE FLUID: None. OTHER: No other significant finding. IMPRESSION: LIVING INTRAUTERINE . EGA 14 weeks 4 days. Trimester of : Second trimester - 13 weeks 1 day to 27 weeks 6 days. TECHNICAL DOCUMENTATION: JOB ID: [id number] [employer]- All Rights Reserved rev-10/06 Reading location - IP/workstation name: [email or web address]
== END ==
LOC: RAD 08:47
PROVIDERS: ATTEND Nurse Practitioner Family
DX: Z34.82 Encounter for supervision of other normal pregnancy, second trimester (principal)
CPT/HCPCS: 76805

== ENCOUNTER → 2019-07-30 | Outpatient (CLI) | payer SELFPAY ==
--- NOTE | 2019-07-30 15:09 | RADIOLOGY REPORT (SQ) ---
EXAM DESCRIPTION: U/S OB 14+ TRNABD 1GES W/O DOP COMPLETED DATE/TIME: 07/30/2019 2:08 pm REASON FOR STUDY: Z34.82 ENCOUNTER FOR SUPRVSN OF NORMAL , SECOND TRIMESTER Z34.82 ENCOUNT ER FOR SUPRVSN OF NORMAL , SECOND TRI COMPARISON: 06/18/2019 TECHNIQUE: Static and Dynamic grayscale imaging performed of gravid uterus using transabdominal appr oach. Additional selected color Doppler and spectral images recorded. All stored on PACS. LIMITATIONS: None. FINDINGS: FETUSES SEEN:1 EGA: 20 weeks 0 days Calculated using BPD,FL,HC,AC documented on images. 4 days discrepancy with cli nical dates. RODOLFO: 12/17/2019 EFW: 336 grams PERCENTILE: Not calculated. LVP: 3.2 x 6.7 cm. PLACENTA: Posterior grade 1. Possible small accessory, or succenturiate, lobe. PRESENTATION: Variable. ANATOMY: HEART RATE: 149 beats per minute. FOUR CHAMBER HEART: Visualized. THREE VESSEL CORD: Yes. CORD INSERTION: Visualized. KIDNEYS AND BLADDER: Visualized. Appear normal. STOMACH: Visualized. Appears normal. SPINE: Normal as visualized. BRAIN AND LATERAL VENTRICLES: Visualized. Appear normal. OTHER: No other significant finding. MATERNAL ADNEXA: Maternal ovaries not visualized. CERVICAL LENGTH: 3.7 cm. Closed. OTHER: No other significant finding. IMPRESSION: LIVING INTRAUTERINE . ESTIMATED GESTATIONAL AGE 20 weeks 0 days No visualized anomalies. There appears to be a small accessory lobe of the placenta. Trimester of : Second trimester - 13 weeks 1 day to 27 weeks 6 days. TECHNICAL DOCUMENTATION: JOB ID: [id number] [employer]- All Rights Reserved Reading location - IP/workstation name: [email or web address]
== END ==
LOC: RAD 12:55
PROVIDERS: ATTEND Midwife
DX: Z34.82 Encounter for supervision of other normal pregnancy, second trimester (principal); Z3A.20 20 weeks gestation of pregnancy
CPT/HCPCS: 76805

== ENCOUNTER 2019-10-15 12:05 | Outpatient (CLI) | payer SELFPAY ==
[2019-10-15 13:00] LABS: APPEARANCE,URINE CLEAR; BILIRUBIN,URINE NEGATIVE (NEGATIVE); COLOR,URINE STRAW; GLUCOSE, URINE >=500 mg/dL (NEGATIVE); KETONES,URINE NEGATIVE (NEGATIVE); LEUKOCYTE ESTERASE,URINE NEGATIVE (NEGATIVE); NITRITE,URINE NEGATIVE (NEGATIVE); PROTEIN,URINE NEGATIVE (NEGATIVE); URINE SPECIFIC GRAVITY 1.009; UROBILINOGEN,URINE NEGATIVE mg/dL (<2.0)
[2019-10-15 13:22] LABS: URINE AMPHETAMINES SCREEN NEGATIVE; URINE BARBITURATES SCREEN NEGATIVE; URINE BENZODIAZEPINES SCREEN NEGATIVE; URINE COCAINE SCREEN NEGATIVE; URINE MARIJUANA (THC) SCREEN NEGATIVE; URINE METHADONE SCREEN NEGATIVE; URINE PHENCYCLIDINE SCREEN NEGATIVE
[2019-10-15] MEDS ORDERED: ACETAMINOPHEN 325 MG TABLET PO ONE (13:47)
[2019-10-15] MEDS ORDERED: ACETAMINOPHEN 325 MG TABLET ONE (13:47)
[2019-10-15] MEDS ORDERED: ONDANSETRON 4 MG TAB.RAPDIS PO ONE (13:52)
[2019-10-15] MEDS ORDERED: ONDANSETRON HCL 8 MG TABLET ONE (13:53)
[2019-10-15] MEDS ORDERED: ONDANSETRON 4 MG TAB.RAPDIS ONE (13:58)
[2019-10-15 14:13] LABS: ABSOLUTE EOSINOPHILS # (AUTO) 0.1 10^3/uL (0.0-0.6); ABSOLUTE LYMPHOCYTES (AUTO) 0.9 10^3/uL (0.5-4.7); ABSOLUTE MONOCYTES (AUTO) 0.5 10^3/uL (0.1-1.4); ABSOLUTE NEUT (AUTO) 3.1 10^3/uL (1.7-8.2); BASOPHILS % (AUTO) 0.3 % (0-2); EOSINOPHILS % (AUTO) 1.8 % (0-6); HEMATOCRIT 33.6 % (36.0-47.0); HEMOGLOBIN 11.8 g/dL (12.0-15.5); LYMPHOCYTES % (AUTO) 19.6 % (13-45); MEAN CORPUSCULAR HEMOGLOBIN 29.9 pg (27.0-33.4); MEAN CORPUSCULAR VOLUME 85 fl (80-97); MONOCYTES % (AUTO) 11.2 % (3-13); PLATELET COUNT 155 10^3/uL (150-450); RED BLOOD COUNT 3.94 10^6/uL (3.72-5.28); RED CELL DISTRIBUTION WIDTH 14.5 % (11.5-14.0); SEGMENTED NEUTROPHILS % (AUTO) 67.1 % (42-78); TOTAL CELLS COUNTED % (AUTO) 100 %; WHITE BLOOD COUNT 4.7 10^3/uL (4.0-10.5)
--- NOTE | 2019-10-15 15:37 | RADIOLOGY REPORT (SQ) ---
EXAM DESCRIPTION: U/S ABDOMEN LIMITED W/O DOP IMAGES COMPLETED DATE/TIME: 10/15/2019 3:12 pm REASON FOR STUDY: abdominal pain. look for appendix inflammation COMPARISON: None. TECHNIQUE: Dynamic and static grayscale images of the right lower quadrant were obtained. LIMITATIONS: None. FINDINGS: The appendix was not visualized. There is no adenopathy or ascites in the right lower dany drant. IMPRESSION: Nonvisualization of the appendix. TECHNICAL DOCUMENTATION: JOB ID: [id number] 2010 [employer]- All Rights Reserved Reading location - IP/workstation name: [email or web address]
--- NOTE | 2019-10-15 15:39 | RADIOLOGY REPORT (SQ) ---
EXAM DESCRIPTION: U/S OB LIMITED IMAGES COMPLETED DATE/TIME: 10/15/2019 3:12 pm REASON FOR STUDY: cervical length COMPARISON: 07/30/2019. TECHNIQUE: Limited transabdominal grayscale ultrasound for evaluation of specific requested obstetri cornelia parameters. LIMITATIONS: None. FINDINGS: CERVICAL LENGTH: 3.8 cm. Closed. CAITLIN: Not assessed. FHR: 137 beats per minute. PRESENTATION: Breech. PLACENTA: Fundal ANATOMY: Not assessed OTHER: No other findings. IMPRESSION: LIMITED OBSTETRICAL ULTRASOUND WITH MEASURED PARAMETERS DELINEATED ABOVE. Trimester of : Third trimester - 28 weeks to delivery.\ TECHNICAL DOCUMENTATION: JOB ID: [id number] 2010 [employer]- All Rights Reserved Reading location - IP/workstation name: [email or web address]
== END 2019-10-15 15:59 | disposition home or self-care (01) ==
LOC: LC 12:05
PROVIDERS: ATTEND Obstetrics & Gynecology
DX: O26.893 Other specified pregnancy related conditions, third trimester (principal); R10.9 Unspecified abdominal pain; Z3A.31 31 weeks gestation of pregnancy
CPT/HCPCS: 36415; 85025; 81001; 80307; 76705; 76815; 59899; S0119

== ENCOUNTER 2019-11-25 08:48 | Outpatient (CLI) | payer SELFPAY ==
[2019-11-25 09:38] LABS: APPEARANCE,URINE CLOUDY; BILIRUBIN,URINE NEGATIVE (NEGATIVE); GLUCOSE, URINE NEGATIVE (NEGATIVE); KETONES,URINE 20 mg/dL (NEGATIVE); LEUKOCYTE ESTERASE,URINE TRACE (NEGATIVE); NITRITE,URINE NEGATIVE (NEGATIVE); PROTEIN,URINE 100 mg/dL (NEGATIVE); URINE SPECIFIC GRAVITY 1.018
[2019-11-25 09:39] LABS: COLOR,URINE DARK YELLOW
[2019-11-25 10:06] LABS: URINE AMPHETAMINES SCREEN NEGATIVE; URINE BARBITURATES SCREEN NEGATIVE; URINE BENZODIAZEPINES SCREEN NEGATIVE; URINE COCAINE SCREEN NEGATIVE; URINE MARIJUANA (THC) SCREEN NEGATIVE; URINE METHADONE SCREEN NEGATIVE; URINE PHENCYCLIDINE SCREEN NEGATIVE
[2019-11-25 14:24] LABS: CHLAM PCR NOT DETECTED (NOT DETECT)
== END 2019-11-25 12:12 | disposition home or self-care (01) ==
LOC: LC 08:48
PROVIDERS: ATTEND Obstetrics & Gynecology Gynecology
DX: O47.1 False labor at or after 37 completed weeks of gestation (principal); Z3A.37 37 weeks gestation of pregnancy; Z88.6 Allergy status to analgesic agent
CPT/HCPCS: 59025; 80307; 81005; 87081; 87491; 87591

== ENCOUNTER 2019-11-29 23:20 | Emergency (ER) | payer SELFPAY ==
[2019-11-29 23:27] VITALS: BP 130/98
[2019-11-29] MEDS ORDERED: DIPHENHYDRAMINE HCL 25 MG CAPSULE PO ONE (23:46)
--- NOTE | 2019-11-29 23:52 | ER Document Report ---
HPI - HPI Patient complains to provider of: rash Time Seen by Provider: 11/29/19 23:40 Context: 29-year-old female who is 37 and half weeks presents to the emergency room complaining of worsening rash that she has to her bilateral hands abdomen and chest for the past week. States she saw her OB and was told to take Benadryl she states she is been not been taking regularly. Only took 2 doses today. Last dose was at 5 PM tonight. States she usually takes 1 she did take 2 at 5 PM tonight. No one else at home with rash. Denies any recent travel. No nausea, no vomiting, no related complaints. No foods, no new medications, no recent antibiotics. Associated Symptoms: None Exacerbated by: Denies Relieved by: Denies Similar symptoms previously: No Recently seen / treated by doctor: Yes - Saw her OB this week does not remember exact date. - ROS Systems Reviewed and Negative: Yes All other systems reviewed and negative - CONSTITUTIONAL Constitutional: DENIES: Fever - EENT EENT: DENIES: Sore Throat - NEURO Neurology: DENIES: Headache - RESPIRATORY Respiratory: DENIES: Trouble Breathing - REPRODUCTIVE Reproductive: REPORTS: : - MUSCULOSKELETAL Musculoskeletal: DENIES: Extremity pain - DERM Skin Color: Erythema Skin Problems: Rash Past Medical History - General Information source: Patient - Social History Smoking Status: Never Smoker Frequency of alcohol use: None Drug Abuse: None Family History: Reviewed & Not Pertinent Renal/ Medical History: Denies: Hx Peritoneal Dialysis Past Surgical History: Reports: Hx Section - Immunizations Immunizations up to date: Yes Hx Diphtheria, Pertussis, Tetanus Vaccination: Yes Vertical Provider Document - CONSTITUTIONAL Agree With Documented VS: Yes Exam Limitations: Language Barrier General Appearance: Moderate Distress - INFECTION CONTROL TRAVEL OUTSIDE OF THE [place] IN LAST 30 DAYS: No - HEENT HEENT: Atraumatic, Normocephalic - NECK Neck: Normal Inspection, Supple, Thyroid Normal - RESPIRATORY Respiratory: Breath Sounds Normal, No Respiratory Distress - CARDIOVASCULAR Cardiovascular: No Murmur, Tachycardia - NEURO Level of Consciousness: Awake, Alert, Appropriate Motor/Sensory: No Motor Deficit, No Sensory Deficit - DERM Integumentary: Warm, Dry, Rash Notes: Scattered erythematous rash that is noted to the abdomen, chest, bilateral forearms and hands, thighs. It is nonblanching, it is not warm or tender to palpation. Course - Re-evaluation Re-evalutation: 11/29/19 23:53 Patient and friend were counseled on the need to take continue with Benadryl 50 mg every 6 hours continuously until rash resolves. Can take Zyrtec or Claritin daily instead of the Benadryl to help with the rash. Recheck with ASSOCIATE PROFESSOR OF THEATRE in 2 days. Return to the emergency room for any new or worsening symptoms. Patient was given strict return to the emergency room guidelines. Return for any new or worsening symptoms. All questions were answered. Patient verbalized understanding and agrees with plan of care. - Vital Signs Vital signs: Temp Pulse Resp BP Pulse Ox 97.8 F 114 H 18 130/98 H 96 11/29/19 23:25 11/29/19 23:25 11/29/19 23:25 11/29/19 23:25 11/29/19 23:25 Discharge - Discharge Clinical Impression: Rash and nonspecific skin eruption, PUPP (pruritic urticarial papules and plaques of ) Condition: Stable Disposition: HOME, SELF-CARE Instructions: Rash of ([facility]) Additional Instructions: It is important that you take 50 mg of Benadryl every 6 hours until rash has resolved. Can take Zyrtec or Claritin daily instead of the Benadryl. Recheck with ASSOCIATE PROFESSOR OF THEATRE in 2 days. Return to the emergency room for any new or worsening symptoms. Referrals: CHARAN TOBIAS CNM [NO LOCAL MD] - Follow up as needed Print Language: Georgian
== END 2019-11-30 00:01 | disposition home or self-care (01) ==
LOC: ER 23:20
DX: O26.893 Other specified pregnancy related conditions, third trimester (principal); L50.8 Other urticaria; L29.8 Other pruritus; Z3A.37 37 weeks gestation of pregnancy
CPT/HCPCS: 99282

== ENCOUNTER 2019-12-03 06:36 | Inpatient (IN) | payer SELFPAY ==
[2019-12-03] MEDS ORDERED: PENICILLIN G-K 5 MILLION UNIT VIAL ONE (07:43)
[2019-12-03] MEDS ORDERED: MISOPROSTOL 0.2 MG TABLET ONE (07:53)
[2019-12-03] MEDS ORDERED: OXYTOCIN 10 UNIT/ML VIAL ONE (07:53)
[2019-12-03] MEDS ORDERED: OXYTOCIN/0.9 % SODIUM CHLORIDE 30 UNIT/500 ML RTUINJ ONE (07:54)
[2019-12-03] MEDS ORDERED: LIDOCAINE 1% INJ-PF (10 MG/ML) 30 ML SDV ONE (07:54)
[2019-12-03] MEDS ORDERED: RINGERS SOLUTION,LACTATED 1,000 ML IV PRN (08:05)
[2019-12-03] MEDS ORDERED: RINGERS SOLUTION,LACTATED 1,000 ML IV ONE (08:05)
[2019-12-03 08:39] LABS: ABSOLUTE EOSINOPHILS # (AUTO) 0.1 10^3/uL (0.0-0.6); ABSOLUTE LYMPHOCYTES (AUTO) 1.2 10^3/uL (0.5-4.7); ABSOLUTE MONOCYTES (AUTO) 0.4 10^3/uL (0.1-1.4); BASOPHILS % (AUTO) 0.4 % (0-2); EOSINOPHILS % (AUTO) 1.7 % (0-6); HEMATOCRIT 36.4 % (36.0-47.0); HEMOGLOBIN 12.3 g/dL (12.0-15.5); LYMPHOCYTES % (AUTO) 20.1 % (13-45); MEAN CORPUSCULAR HEMOGLOBIN 27.5 pg (27.0-33.4); MEAN CORPUSCULAR HGB CONC 33.7 g/dL (32.0-36.0); MEAN CORPUSCULAR VOLUME 81 fl (80-97); MONOCYTES % (AUTO) 7.7 % (3-13); PLATELET COUNT 108 10^3/uL (150-450); RED BLOOD COUNT 4.48 10^6/uL (3.72-5.28); RED CELL DISTRIBUTION WIDTH 15.9 % (11.5-14.0); SEGMENTED NEUTROPHILS % (AUTO) 70.1 % (42-78); TOTAL CELLS COUNTED % (AUTO) 100 %; WHITE BLOOD COUNT 5.8 10^3/uL (4.0-10.5)
[2019-12-03] MEDS ORDERED: EPHEDRINE SULFATE INJ 50 MG/1 ML AMPULE ONE (08:55)
[2019-12-03] MEDS ORDERED: BUPIVACAINE HCL 0.25 % INJ/PF (2.5 MG/1 ML) 30 ML VIAL ONE (08:56)
[2019-12-03] MEDS ORDERED: FENTANYL/BUPIVACAINE/NS/PF 300 MCG/150 ML RTUINJ EPI ONE (08:56)
--- NOTE | 2019-12-03 09:25 | Admission Physical ---
Datetime Report Generated by CPN: 12/03/2019 09:25 CURRENT ADMISSION Chief Complaint: Uterine Contractions Indication for Induction: Not Applicable Admit Impression : Term, Intrauterine ; Active Labor; Intact Membranes Admit Plan: Admit to Unit; Initiate Labor Protocol; Initiate Protocol ALLERGIES Medication Allergies: No Medication Allergies: morphine/SV/Anaphylaxis (10/15/2019); hydromorphone/SV/Anaphylaxis (03/15/2018) Latex: No Latex Allergies OBSTETRICAL HISTORY EDC: 12/13/2019 00:00 : 5 Para: 4 Term: 4 : 0 SAB: 0 IAB: 0 Ectopic: 0 Livin Cesareans: 1 VBACs: 0 Multiple Births: 0 Gestational Diabetes: Yes Rh Sensitization: No Incompetent Cervix: No JEFF: No Infertility: No ART Treatment: No Uterine Anomaly: No IUGR: No Hx Previous C/S: Yes Macrosomia: Yes Hx Loss/Stillborn: No PIH: No Hx : No Depression/PP Depression: No PTL/PROM: No Post Hemorrhage: Yes Current Procedures: Ultrasound Obstetrical History Comments: needed blood products after c section SEE RECORDS Alcohol: No Marijuana : No Cocaine: No Other Illicit Drugs: No Cigarettes: Never Smoker. 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: Yes Heart Disease: No Hosp/Surgery: Yes Autoimmune Disorder: No Anesthetic Complications: No Kidney Disease: No Abnormal Pap Smear: Yes Neuro/Epilepsy: No Psychiatric Disorders: No Other Medical Diseases: No Hepatitis/Liver Disease: No Significant Family History: No Varicosities/Phlebitis: No Trauma/Violence : No Thyroid Dysfunction: No Medical History Comments: c section 03/12/18 umbilical hernia, anemia INFECTIOUS HISTORY Gonorrhea: No Genital Herpes: No Chlamydia: No Tuberculosis: No Syphilis: No Hepatitis: No HIV/AIDS Exposure: No Rash or Viral Illness: No HPV: No PHYSICAL EXAM General: Normal HEENT: Normal Neurologic: Normal Thyroid: Deferred Heart: Normal Lungs: Normal Breast: Deferred Back: Normal Abdomen: Normal Genitourinary Exam: Normal Extremities: Normal DTRs: Normal Pelvic Type: Not Done Vital Signs: Reviewed; Within Normal Limits VAGINAL EXAM Dilatation: 5 Effacement: 80 Contraction Comments: 2-5 MEMBRANES Membranes: Intact FETUS A EGA: 38.4 Monitoring: External US FHR- Baseline: 140 Variability: Moderate 6-25bpm Accelerations: 15X15 Decelerations: None FHR Category: Category I Presentation: Oblique Admit Comment: . G3 was c/s for macrosomia--10lbs 4oz, 3 vaginal with largest 8lbs +. Hx Pre-eclampsia and hemorrhage. No hx available on first 2 pregnancies. Daily beer in per [facility] records and PICA but did not actually eat dirt. Hx depression. Varicosities bilaterally legs. LSIL pap with colpo. Accessory lobe noted on 20 wk sono. Cervical dilation to 4-5 cm on admit. Risks/benefits TOLAC discussed by Dr Maher with use of MARTII. Will proceed with JOSE ANGEL. Plan: Admit. records on chart. Pain management. Monitor labor progress closely. PLANS FOR LABOR AND DELIVERY Labor and Delivery: None Pain Management: None Feeding Preference: Both Benefit of Breast Feed Discussed: Yes Circumcision: N/A INFORMED CONSENT Assignment: Terra Maher MD Signature: with User ID: Oscar : with User ID: Oscar : I personally evaluated and examined the patient in conjunction with the MLP and agree with the assessment, treatment plan and disposition.
[2019-12-03 09:31] LABS: INTERNATIONAL RATION (INR) 0.95; PROTHROMBIN TIME 12.7 SEC (11.4-15.4)
[2019-12-03 09:32] LABS: PARTIAL THROMBOPLASTIN TIME 29.4 SEC (23.5-35.8)
[2019-12-03 09:39] LABS: FIBRINOGEN 647 mg/dL (209-497)
[2019-12-03 09:45] LABS: APPEARANCE,URINE SLIGHTLY-CLOUDY; BILIRUBIN,URINE NEGATIVE (NEGATIVE); COLOR,URINE AMBER; GLUCOSE, URINE NEGATIVE (NEGATIVE); KETONES,URINE NEGATIVE (NEGATIVE); LEUKOCYTE ESTERASE,URINE NEGATIVE (NEGATIVE); NITRITE,URINE NEGATIVE (NEGATIVE); PROTEIN,URINE 30 mg/dL (NEGATIVE); URINE SPECIFIC GRAVITY 1.017
[2019-12-03 09:46] LABS: ALKALINE PHOSPHATASE 341 U/L (38-126); ANION GAP 7 (5-19); ASPARTATE AMINO TRANSFERASE 49 U/L (14-36); BILIRUBIN,DIRECT 0.2 mg/dL (0.0-0.4); BLOOD UREA NITROGEN 13 mg/dL (7-20); CALCIUM 8.6 mg/dL (8.4-10.2); CARBON DIOXIDE 19 mmol/L (22-30); CHLORIDE 108 mmol/L (98-107); GLUCOSE 84 mg/dL (75-110); POTASSIUM 4.6 mmol/L (3.6-5.0); TOTAL PROTEIN 6.6 g/dL (6.3-8.2); URIC ACID 5.6 mg/dL (2.5-6.2)
[2019-12-03 10:11] LABS: URINE AMPHETAMINES SCREEN NEGATIVE; URINE BARBITURATES SCREEN NEGATIVE; URINE BENZODIAZEPINES SCREEN NEGATIVE; URINE COCAINE SCREEN NEGATIVE; URINE MARIJUANA (THC) SCREEN NEGATIVE; URINE METHADONE SCREEN NEGATIVE; URINE PHENCYCLIDINE SCREEN NEGATIVE
[2019-12-03] MEDS ORDERED: OXYTOCIN/0.9 % SODIUM CHLORIDE 30 UNIT/500 ML RTUINJ IV PRN ×2 (12:09→14:15)
[2019-12-03] MEDS ORDERED: FAMOTIDINE INJ/PF 20 MG/2 ML SDV IV ONE ×2 (13:45→13:51)
[2019-12-03] MEDS ORDERED: ONDANSETRON HCL INJ/PF 4 MG/2 ML SDV ONE (13:50)
[2019-12-03] MEDS ORDERED: ONDANSETRON HCL INJ/PF 4 MG/2 ML SDV IV ONE (13:51)
[2019-12-03] MEDS ORDERED: PROMETHAZINE HCL 25 MG SUPP.RECT PR PRN (14:15)
[2019-12-03] MEDS ORDERED: PSEUDOEPHEDRINE HCL 30 MG TABLET PO PRN (14:15)
[2019-12-03] MEDS ORDERED: PROMETHAZINE HCL 25 MG TABLET PO PRN (14:15)
[2019-12-03] MEDS ORDERED: DIPH/PERTUSS(ACELL)/TETANUS VAC/PF 0.5 ML SYR (>=10YO) IM PRN (14:15)
[2019-12-03] MEDS ORDERED: ACETAMINOPHEN 650 MG SUPP.RECT PR PRN (14:15)
[2019-12-03] MEDS ORDERED: MEASLES,MUMPS&RUBELLA VACC/PF 0.5 ML VIAL SUBCUT PRN (14:15)
[2019-12-03] MEDS ORDERED: MAGNESIUM HYDROXIDE SUSP 30 ML UDCUP PO PRN (14:15)
[2019-12-03] MEDS ORDERED: ZOLPIDEM TARTRATE 5 MG TABLET PO PRN (14:15)
[2019-12-03] MEDS ORDERED: NA PHOS,M-B/NA PHOS,DI-BA (ADULT) 133 ML ENEMA PR PRN (14:15)
[2019-12-03] MEDS ORDERED: DIPHENHYDRAMINE HCL 25 MG CAPSULE PO PRN (14:15)
[2019-12-03] MEDS ORDERED: PROMETHAZINE HCL INJ 25 MG/1 ML VIAL IV PRN (14:15)
[2019-12-03] MEDS ORDERED: DIBUCAINE 1% OINTMENT 28 GM TP PRN (14:15)
[2019-12-03] MEDS ORDERED: GLYCERIN/WITCH HAZEL LEAF 1 EACH MED..WIPE TP PRN (14:15)
[2019-12-03] MEDS ORDERED: BENZOCAINE/MENTHOL AEROSOL SPRAY 56 ML TOP PRN (14:15)
[2019-12-03] MEDS ORDERED: ACETAMINOPHEN WITH CODEINE #3 TABLET PO PRN (14:15)
[2019-12-03 14:37] LABS: ABSOLUTE LYMPHOCYTES (AUTO) 1.7 10^3/uL (0.5-4.7); ABSOLUTE MONOCYTES (AUTO) 0.5 10^3/uL (0.1-1.4); ABSOLUTE NEUT (AUTO) 5.3 10^3/uL (1.7-8.2); BASOPHILS % (AUTO) 0.6 % (0-2); EOSINOPHILS % (AUTO) 0.5 % (0-6); HEMATOCRIT 40.4 % (36.0-47.0); HEMOGLOBIN 13.6 g/dL (12.0-15.5); LYMPHOCYTES % (AUTO) 22.5 % (13-45); MEAN CORPUSCULAR HEMOGLOBIN 27.4 pg (27.0-33.4); MEAN CORPUSCULAR HGB CONC 33.7 g/dL (32.0-36.0); MEAN CORPUSCULAR VOLUME 81 fl (80-97); PLATELET COUNT 103 10^3/uL (150-450); RED BLOOD COUNT 4.97 10^6/uL (3.72-5.28); RED CELL DISTRIBUTION WIDTH 15.7 % (11.5-14.0); SEGMENTED NEUTROPHILS % (AUTO) 70.4 % (42-78); TOTAL CELLS COUNTED % (AUTO) 100 %; WHITE BLOOD COUNT 7.6 10^3/uL (4.0-10.5)
[2019-12-03 14:42] LABS: FIBRINOGEN 635 mg/dL (209-497); INTERNATIONAL RATION (INR) 0.96; PROTHROMBIN TIME 12.8 SEC (11.4-15.4)
[2019-12-03 14:45] LABS: D-DIMER 3.22 ug/mL (0.00-0.50)
--- NOTE | 2019-12-03 14:57 | RADIOLOGY REPORT (SQ) ---
EXAM DESCRIPTION: CHEST SINGLE VIEW IMAGES COMPLETED DATE/TIME: 12/03/2019 2:39 pm REASON FOR STUDY: cough and vomiting post delivery COMPARISON: None. EXAM PARAMETERS: NUMBER OF VIEWS: One view. TECHNIQUE: Single frontal radiographic view of the chest acquired. RADIATION DOSE: NA LIMITATIONS: None. FINDINGS: LUNGS AND PLEURA: Nodular density overlies the right costophrenic angle. Possibly somethi ng lying on or behind the patient. Doubt this represents parenchymal abnormality. Lung pedroza are o therwise clear. No effusions or pneumothorax. MEDIASTINUM AND HILAR STRUCTURES: No masses. Contour normal. HEART AND VASCULAR STRUCTURES: Heart normal in size. Normal vasculature. BONES: No acute findings. HARDWARE: None in the chest. OTHER: No other significant finding. IMPRESSION: Asymmetric nodular opacity overlying the right base probably something on or behind the patient. Clinical correlation is needed. If if needed two-view chest is recommended. TECHNICAL DOCUMENTATION: JOB ID: [id number] [employer]- All Rights Reserved Reading location - IP/workstation name: [email or web address]
[2019-12-03 14:59] LABS: ALBUMIN 2.9 g/dL (3.5-5.0); ALKALINE PHOSPHATASE 347 U/L (38-126); AMYLASE 92 U/L (30-110); ANION GAP 6 (5-19); ASPARTATE AMINO TRANSFERASE 50 U/L (14-36); BILIRUBIN,DIRECT 0.1 mg/dL (0.0-0.4); BLOOD UREA NITROGEN 14 mg/dL (7-20); CALCIUM 8.5 mg/dL (8.4-10.2); CARBON DIOXIDE 21 mmol/L (22-30); CHLORIDE 108 mmol/L (98-107); GLUCOSE 101 mg/dL (75-110); POTASSIUM 4.2 mmol/L (3.6-5.0); TOTAL PROTEIN 6.3 g/dL (6.3-8.2); URIC ACID 6.2 mg/dL (2.5-6.2)
[2019-12-03 15:00] LABS: ALCOHOL < 10 mg/dL (NONE DETECTED)
[2019-12-03] MEDS ORDERED: ACETAMINOPHEN 1,000 MG/100 ML RTUPB IV PRN (15:14)
--- NOTE | 2019-12-03 15:54 | PDOC CONSULTATION ---
Consultation Consult Date: 12/03/19 Attending physician:: MARTY MAHER Provider Consulted: GENEVIEVE TURCIOS Consult reason:: change in mental status, abd pain, chest pain History of Present Illness Admission Date/PCP: 12/03/19 07:49 Patient complains of: Chest pain, right upper quadrant pain History of Present Illness: SHELLI BLOOD is a 29 year old female who presents to the hospital for vaginal delivery. Patient just underwent a vaginal delivery today and subsequently developed significant pain in her right upper quadrant as well as a cramping pain in her chest. Described the pain as severe. Denies fever or chills. She was noted to become almost unresponsive but never fully lost consciousness. At the time, she was noted to have some drooling but no focal weaknesses. Nail Technician Teacher states that patient only had mild blood loss change vaginal delivery and not insignificant. Consulted hospitalist service for evaluation of mental status change and abdominal pain. On evaluation, patient is more awake and more talkative which is improvements from her prior status. Still appears very fatigued and slow to respond. Speaking in faint voices. I have confirmed with her primary provider that she has not received any sedating medications or pain medications besides the epidural given during her vaginal delivery. Also received Pitocin. Past Medical History Medical History: Other - Multiple pregnancies Past Surgical History Past Surgical History: Reports: Section Social History Information Source: Patient, Relative Smoking Status: Never Smoker Frequency of Alcohol Use: Occasional Hx Recreational Drug Use: No Family History Family History: None, Other - Denies family history of heart disease. denies: CAD, Hypertension Parental Family History Reviewed: Yes Children Family History Reviewed: NA Sibling(s) Family History Reviewed.: Yes Medication/Allergy Home Medications: Vits96/Iron Fum/Folic [ Tablet] 1 tab PO DAILY 02/15/18 Diphenhydramine HCl [Benadryl 25 mg Capsule] 25 mg PO PRN PRN 11/25/19 Allergies/Adverse Reactions: hydromorphone [From Dilaudid] Allergy (Severe, Verified 12/03/19 14:17) Anaphylaxis morphine Allergy (Severe, Verified 12/03/19 14:17) Anaphylaxis Review of Systems Constitutional: PRESENT: weakness. ABSENT: chills, fever(s) Eyes: ABSENT: visual disturbances Nose, Mouth, and Throat: ABSENT: headache(s) Cardiovascular: PRESENT: chest pain Respiratory: ABSENT: cough, dyspnea Gastrointestinal: PRESENT: abdominal pain, nausea, vomiting Genitourinary: ABSENT: dysuria Integumentary: ABSENT: diaphoresis Neurological: PRESENT: confusion, weakness - Generalized. ABSENT: focal weakness Psychiatric: PRESENT: other - Denies any psychiatric condition Hematologic/Lymphatic: ABSENT: easy bleeding Physical Exam Vital Signs: Intake & Output 12/02/19 12/03/19 12/04/19 06:59 06:59 06:59 Weight 74.1 kg General appearance: PRESENT: cooperative, other - Appears very tired, slow to respond to questions and talking in a very low volume Head exam: PRESENT: normocephalic Eye exam: PRESENT: EOMI, PERRLA. ABSENT: nystagmus, scleral icterus Mouth exam: PRESENT: neck supple Neck exam: ABSENT: JVD Respiratory exam: PRESENT: clear to auscultation amelia, symmetrical, unlabored. ABSENT: tachypnea, wheezes Cardiovascular exam: PRESENT: RRR, +S1, +S2. ABSENT: diastolic murmur, irregular rhythm, systolic murmur, tachycardia GI/Abdominal exam: PRESENT: hernia - Small reducible periumbilical hernia, normal bowel sounds, soft, tenderness. ABSENT: distended, firm, guarding, rebound, rigid Extremities exam: ABSENT: calf tenderness Neurological exam: PRESENT: alert, awake, oriented to person, oriented to place, oriented to time, oriented to situation, CN II-XII grossly intact, motor sensory deficit - Nonfocal weakness 4/5 times all 4 extremities., other - No dysarthria but does talk in a low volume. ABSENT: aphasic Psychiatric exam: ABSENT: agitated, anxious Focused psych exam: ABSENT: internal stimuli Skin exam: ABSENT: jaundice Results Laboratory Results: 12/03/19 14:14 12/03/19 14:14 12/03/19 12/03/19 12/03/19 06:53 08:22 08:22 WBC 5.8 RBC 4.48 Hgb 12.3 Hct 36.4 MCV 81 MCH 27.5 MCHC 33.7 RDW 15.9 H Plt Count 108 L Seg Neutrophils % 70.1 Sodium Potassium Chloride Carbon Dioxide Anion Gap BUN Creatinine Est GFR ( Amer) Glucose Uric Acid Calcium Magnesium Total Bilirubin AST Alkaline Phosphatase Total Protein Albumin Amylase Lipase Urine Color NISA Urine Appearance SLIGHTLY-CLOUDY Urine pH 6.0 Ur Specific [place] 1.017 Urine Protein 30 H Urine Glucose (UA) NEGATIVE Urine Ketones NEGATIVE Urine Blood SMALL H Urine Nitrite NEGATIVE Ur Leukocyte Esterase NEGATIVE Blood Type O POSITIVE Antibody Screen NEGATIVE 12/03/19 12/03/19 12/03/19 09:17 14:14 14:14 WBC 7.6 RBC 4.97 Hgb 13.6 Hct 40.4 MCV 81 MCH 27.4 MCHC 33.7 RDW 15.7 H Plt Count 103 L Seg Neutrophils % 70.4 Sodium 134.3 L 134.9 L Potassium 4.6 4.2 Chloride 108 H 108 H Carbon Dioxide 19 L 21 L Anion Gap 7 6 BUN 13 14 Creatinine 0.54 0.59 Est GFR ( Amer) > 60 > 60 Glucose 84 101 Uric Acid 5.6 6.2 Calcium 8.6 8.5 Magnesium 1.9 Total Bilirubin 1.0 1.0 AST 49 H 50 H Alkaline Phosphatase 341 H 347 H Total Protein 6.6 6.3 Albumin 3.0 L 2.9 L Amylase 92 Lipase 121.7 Urine Color Urine Appearance Urine pH Ur Specific [place] Urine Protein Urine Glucose (UA) Urine Ketones Urine Blood Urine Nitrite Ur Leukocyte Esterase Blood Type Antibody Screen Impressions: Chest X-Ray 12/03/19 14:06 IMPRESSION: Asymmetric nodular opacity overlying the right base probably something on or behind the patient. Clinical correlation is needed. If if needed two-view chest is recommended. Assessment and Plan - Diagnosis (1) Pre-syncope Is this a current diagnosis for this admission?: Yes Plan: Vital signs have been normal and patient was never hypotensive as reported by her care team. Patient did not feel he tried to stand up before experiencing the episodes to warrant orthostasis. No involuntary jerking movements reported during episode. Comprehensive neurological exam was only revealing of nonfocal weakness which is even in all 4 extremities-strongly doubt an ischemic neurological event. Head CT is being obtained Patient seems to be coming back to herself but appears still quite groggy. Favor continuation of continuous IV fluid administration. EKG reviewed and does not show any arrhythmia. CBC and CMP are essentially unchanged. We will continue to monitor. Avoid any sedating medications until patient's mental status fully normalizes. (2) Chest pain at rest Is this a current diagnosis for this admission?: Yes Plan: EKG shows sinus rhythm with no worrisome changes concerning for ischemia. EKG is also unchanged from her prior EKG last year. Old findings of right bundle branch incomplete block noted. Troponin is negative x1. Will obtain 1 more later this afternoon. Pain control with no sedating medications. Also receiving Pepcid for possible acid reflux. (3) Abdominal pain Qualifiers: Abdominal location: right upper quadrant Qualified Code(s): R10.11 - Right upper quadrant pain Is this a current diagnosis for this admission?: Yes Plan: I have discussed case elaborately with patient's primary provider Dr. Maher with who states that patient had only minimal blood loss during the vaginal delivery without any evidence of uterine rupture. Did receive Pitocin. Chest x-ray is essentially unremarkable and does not show any air under the diaphragm. Given that this abdominal pain started right after vaginal delivery, I have recommended to start abdominal/pelvis CT with contrast. (4) Status post vaginal delivery Is this a current diagnosis for this admission?: Yes Plan: Uncertain what the relationship is to the rest of her symptoms at this time. care as per PATIENT INSURANCE CLERK. (5) Transaminitis Is this a current diagnosis for this admission?: Yes Plan: Mild and stable. Likely related to . No evidence of cholestasis and bilirubin is normal. Viral hepatitis panel has been ordered. - Time Time Spent with patient: 35 or more minutes
[2019-12-03] MEDS ORDERED: ACETAMINOPHEN 1,000 MG/100 ML RTUPB IV ONE (16:49)
--- NOTE | 2019-12-03 17:14 | RADIOLOGY REPORT (SQ) ---
EXAM DESCRIPTION: CT HEAD WITHOUT IMAGES COMPLETED DATE/TIME: 12/03/2019 4:33 pm REASON FOR STUDY: pt began c/o RUQ pain, limited responsiveness now COMPARISON: None. TECHNIQUE: Axial images acquired through the brain without intravenous contrast. Images reviewed wi th bone, brain and subdural windows. Additional sagittal and coronal reconstructions were generated. Images stored on PACS. All CT scanners at this facility use dose modulation, iterative reconstruction, and/or weight based d osing when appropriate to reduce radiation dose to as low as reasonably achievable (ALARA). [facility]: Dose Right [facility]: CareDose [facility]: Dose Right [facility]: Teradose 4D [facility]: [employer] RADIATION DOSE: mGy. LIMITATIONS: None. FINDINGS: VENTRICLES: Normal size and contour. CEREBRUM: No masses. No hemorrhage. No midline shift. No evidence for acute infarction. Normal gra y/white matter differentiation. No areas of low density in the white matter. CEREBELLUM: No masses. No hemorrhage. No alteration of density. No evidence for acute infarction. EXTRAAXIAL SPACES: No fluid collections. No masses. ORBITS AND GLOBE: No intra- or extraconal masses. Normal contour of globe without masses. CALVARIUM: No fracture. PARANASAL SINUSES: No fluid or mucosal thickening. SOFT TISSUES: No mass or hematoma. OTHER: There is pneumorrhachis which most likely is secondary to epidural catheter placement for anes thesia. Clinical correlation is needed. This is typically a benign finding. IMPRESSION: No acute intracranial event. Pneumorrhacis in the upper cervical region as described. EVIDENCE OF ACUTE STROKE: NO. COMMENT: This report was called to Dr. Gunnar Capone's sample card maker. At17:07 on 12/03/2019. Quality ID # [id number]: Final reports with documentation of one or more dose reduction techniques (e.g., Au tomated exposure control, adjustment of the mA and/or kV according to patient size, use of iterative reconstruction technique) TECHNICAL DOCUMENTATION: JOB ID: [id number] 2010 [employer]- All Rights Reserved Reading location - IP/workstation name: [email or web address]
[2019-12-03] MEDS ORDERED: DOCUSATE SODIUM 100 MG CAPSULE ONE (17:43)
[2019-12-03] MEDS ORDERED: MAG HYDROX/AL HYDROX/SIMETH SUSP 30 ML UDCUP ONE (17:44)
[2019-12-03] MEDS ORDERED: FERROUS SULFATE 325 MG TABLET PO ONE (17:44)
[2019-12-03] MEDS: FERROUS SULFATE 325 MG TABLET PO SCH (17:48)
[2019-12-03] MEDS: DOCUSATE SODIUM 100 MG CAPSULE PO SCH (17:48)
[2019-12-03] MEDS ORDERED: LIDOCAINE 2% VISCOUS SOLN 15 ML UDCUP PO ONE (18:00)
[2019-12-03] MEDS ORDERED: METOCLOPRAMIDE HCL ORAL SOLN 10 MG/10 ML UDCUP PO ONE (18:00)
[2019-12-03] MEDS ORDERED: MAG HYDROX/AL HYDROX/SIMETH SUSP 30 ML UDCUP PO ONE (18:00)
--- NOTE | 2019-12-03 18:14 | Delivery Summary ---
Del Sum A-C Datetime Report Generated by CPN: 12/03/2019 18:13 DELIVERY PERSONNEL DELIVERY PERSONNEL: [id number] Nurse Sales Office Manager Certified:: Estelita Willis CNM Labor and Delivery Nurse:: Cailin Gudino RNvocational guidance counselor Nurse:: ABRAHAN Odonnell Toll Collector/HARDWOOD FLOOR LAYER: Kimmy Madison CNA II MATERNAL INFORMATION Delivery Anesthesia: Epidural Medications After Delivery: Pitocin 30 Units in 500ml NS/D5W Maternal Complications: None Provider Comments: Called to room 2 for delivery[address] Vertex on the perineum. Positioned for delivery with legs in stirrups. Surgical Technology Instructor via [email or web address]. at bedside. Patient instructed to push-thick meconium noted on perineum. viable female in vertex ELICEO at 1338. Apgars 9-9. 3 vessel cord, spontaneous respirations after bulb suction. Dr Maher called to room secondary patient complaint of RUOQ pain that began shortly before . Dr Maher delivered placenta, intact with accessory lobe at 1348. Placenta to lab. Superficial tear of perineal area assessed-no repair needed. Pepcid and labs ordered by Dr Maher. Consult with hospitalist ordered as patient responding less to stimulation. LABOR SUMMARY EDC: 12/13/2019 00:00 No. Babies in Womb: 1 Attempted: Yes Labor Anesthesia: Epidural LABOR INFORMATION Reason for Induction: Not Applicable Onset of Labor: 12/03/2019 04:30 Complete Dilatation: 12/03/2019 13:30 Oxytocin: Augmentation Group B Beta Strep: 1 NO GROUP B STREPTOCOCCUS RECOVERED * This is a corrected result. * A prior result of group b strep that was reported as final has been changed. Antibiotics # of Doses: 0 Steroids Given: None Reason Steroids Not Administered: Not Applicable MEMBRANES Membranes Rupture Method: Spontaneous Rupture of Membranes: 12/03/2019 09:49 Length of Rupture (hr): 3.82 Amniotic Fluid Color: Heavy Meconium Amniotic Fluid Amount: Moderate Amniotic Fluid Odor: Normal STAGES OF LABOR Stage 1 hr: 9 Stage 1 min: 0 Stage 2 hr: 0 Stage 2 min: 8 Stage 3 hr: 0 Stage 3 min: 10 Total Time in Labor hr: 9 Total Time in Labor min: 18 VAGINAL DELIVERY Episiotomy: None Laceration #1: Perineal Other Laceration: Superficial perineal tear Laceration Repair: Not Applicable Sponge Count Correct: N/A Sharps Count Correct: Yes BABY A INFORMATION Infant Delivery Date/Time: 12/03/2019 13:38 Method of Delivery: Vaginal Nurse Controlled Delivery: No Born in Route : No : Successful Forceps: N/A Vacuum Extraction: N/A Shoulder Dystocia : No PRESENTATION/POSITION BABY A Presentation: Cephalic Cephalic Presentation: Vertex Vertex Position: Right Occipital Anterior Breech Presentation: N/A PLACENTA INFORMATION BABY A Placenta Delivery Time : 12/03/2019 13:48 Placenta Method of Delivery: Spontaneous Placenta Status: Delivered SCORES BABY A Heart Rate 1 min: >100 bpm Resp Effort 1 min: Good Cry Reflex Irritability 1 min: Cough or Sneeze or Pulls Away Muscle Tone 1 min: Active Motion Color 1 min: Body [place], Extremities Blue Resuscitation Effort 1 min: Tactile Stimulation SCORE 1 MIN: 9 Heart Rate 5 min: >100 bpm Resp Effort 5 min: Good Cry Reflex Irritability 5 min: Cough or Sneeze or Pulls Away Muscle Tone 5 min: Active Motion Color 5 min: Body [place], Extremities Blue Resuscitation Effort 5 min: Tactile Stimulation SCORE 5 MIN: 9 INFORMATION BABY A Gestational Age at Delivery: 38.4 Gestational Status: Early Term- 37- 38.6 Weeks Infant Outcome : Liveborn Condition : Stable Sex: Female IDENTIFICATION BABY A Infant Verification Date/Time: 12/03/2019 14:06 ID Band Number: [id number] Mother's Name Verified: Yes Infant RN Verifying : Sautry Additional Verifying Personnel: AWelch-Nella WEIGHT/LENGTH BABY A Birthweight (gm): 3500 Weight (lb): 7 Infant Weight (oz): 11 Infant Length (in): 20.00 Length (cm): 50.80 CORD INFORMATION BABY A No. Cord Vessels: 3 Nuchal Cord : N/A Cord Blood Taken: Yes-For Storage (Mom's Blood type +) Suction: Mouth; Nose ASSESSMENT BABY A Complications: Meconium Physical Findings at Delivery: Within Normal Limits Respirations: Appears Normal Skin to Skin: No Stone Gang Sawyer/ALS Called : No Care By: SAutry Transferred To: [facility] BABY B INFORMATION : N/A SIGNATURES Assignment: Terra Maher MD Signature: with User ID: Oscar : with User ID: Oscar : I personally evaluated and examined the patient in conjunction with the MLP and agree with the assessment, treatment plan and disposition.
--- NOTE | 2019-12-03 18:32 | PDOC PROGRESS REPORT ---
Subjective Progress Note for:: 12/03/19 Subjective:: pain improved and patient is more alert. Reason For Visit: ,, Fatty liver, Transaminitis Physical Exam - Physical Exam Vital Signs: Intake & Output 12/02/19 12/03/19 12/04/19 06:59 06:59 06:59 Weight 74.1 kg General appearance: PRESENT: no acute distress, well-developed, well-nourished Head exam: PRESENT: atraumatic, normocephalic Cardiovascular exam: PRESENT: RRR. ABSENT: diastolic murmur, rubs, systolic murmur Vascular exam: PRESENT: normal capillary refill GI/Abdominal exam: PRESENT: soft, tenderness - Umbilical, fundal, RUQ ttp. ABSENT: ascites, rebound Rectal exam: PRESENT: deferred Extremities exam: PRESENT: full ROM. ABSENT: calf tenderness, clubbing, pedal edema Musculoskeletal exam: PRESENT: other - s/p epidural Neurological exam: PRESENT: alert, awake, oriented to person, oriented to place, oriented to time, oriented to situation, CN II-XII grossly intact. ABSENT: motor sensory deficit Psychiatric exam: PRESENT: appropriate affect, normal mood. ABSENT: homicidal ideation, suicidal ideation Result Laboratory Results: 12/03/19 14:14 12/03/19 14:14 12/03/19 12/03/19 12/03/19 06:53 08:22 08:22 WBC 5.8 RBC 4.48 Hgb 12.3 Hct 36.4 MCV 81 MCH 27.5 MCHC 33.7 RDW 15.9 H Plt Count 108 L Seg Neutrophils % 70.1 Sodium Potassium Chloride Carbon Dioxide Anion Gap BUN Creatinine Est GFR ( Amer) Glucose Uric Acid Calcium Magnesium Total Bilirubin AST Alkaline Phosphatase Total Protein Albumin Amylase Lipase Urine Color NISA Urine Appearance SLIGHTLY-CLOUDY Urine pH 6.0 Ur Specific [place] 1.017 Urine Protein 30 H Urine Glucose (UA) NEGATIVE Urine Ketones NEGATIVE Urine Blood SMALL H Urine Nitrite NEGATIVE Ur Leukocyte Esterase NEGATIVE Blood Type O POSITIVE Antibody Screen NEGATIVE 12/03/19 12/03/19 12/03/19 09:17 14:14 14:14 WBC 7.6 RBC 4.97 Hgb 13.6 Hct 40.4 MCV 81 MCH 27.4 MCHC 33.7 RDW 15.7 H Plt Count 103 L Seg Neutrophils % 70.4 Sodium 134.3 L 134.9 L Potassium 4.6 4.2 Chloride 108 H 108 H Carbon Dioxide 19 L 21 L Anion Gap 7 6 BUN 13 14 Creatinine 0.54 0.59 Est GFR ( Amer) > 60 > 60 Glucose 84 101 Uric Acid 5.6 6.2 Calcium 8.6 8.5 Magnesium 1.9 Total Bilirubin 1.0 1.0 AST 49 H 50 H Alkaline Phosphatase 341 H 347 H Total Protein 6.6 6.3 Albumin 3.0 L 2.9 L Amylase 92 Lipase 121.7 Urine Color Urine Appearance Urine pH Ur Specific [place] Urine Protein Urine Glucose (UA) Urine Ketones Urine Blood Urine Nitrite Ur Leukocyte Esterase Blood Type Antibody Screen 12/03/19 14:14 Troponin I < 0.012 Impressions: Chest X-Ray 12/03/19 14:06 IMPRESSION: Asymmetric nodular opacity overlying the right base probably something on or behind the patient. Clinical correlation is needed. If if needed two-view chest is recommended. Head CT 12/03/19 14:07 IMPRESSION: No acute intracranial event. Pneumorrhacis in the upper cervical region as described. EVIDENCE OF ACUTE STROKE: NO. Assessment & Plan - Diagnosis (1) Fatty infiltration of liver Is this a current diagnosis for this admission?: Yes Plan: h/o severe RUQ pain in 2017 and transaminitis that was similar to levels now. She appears to be stable now and doing well. Needs to f/u with GI/Gen surg Hepatitis panel ordered. (2) Gestational thrombocytopenia Is this a current diagnosis for this admission?: Yes Plan: stable (3) History of section, low transverse Is this a current diagnosis for this admission?: Yes Plan: now with successful (4) Non-Chinese speaking patient Is this a current diagnosis for this admission?: Yes (5) Right upper quadrant abdominal pain affecting Is this a current diagnosis for this admission?: Yes Plan: improved with IV tylenol (6) Transaminitis Is this a current diagnosis for this admission?: Yes Plan: see above. Same levels since 2017 (7) Umbilical hernia without obstruction or gangrene Is this a current diagnosis for this admission?: Yes (8) , delivered Is this a current diagnosis for this admission?: Yes Plan: on uterine exploration uterine scar intact. CT abd/pelvis with small to mod fluid in abd/pelvis. No e/o acute process or blood. No free air. Gallbladder appears normal. fatty liver normal and awaiti ng report. - Time Time Spent with patient: 35 or more minutes Smoking Cessation Education: 3 to 10 minutes Medications reviewed and adjusted accordingly: Yes Anticipated discharge: Home Within: within 48 hours - Inpatient Certification Based on my medical assessment, after consideration of the patient's comorbidities, presenting symptoms, or acuity I expect that the services needed warrant INPATIENT care.: Yes I certify that my determination is in accordance with my understanding of Medicare's requirements for reasonable and necessary INPATIENT services [42 CFR 412.3e].: Yes Medical Necessity: Need Close Monitoring Due to Risk of Patient Decompensation, Need For IV Fluids, Need for Pain Control Post Hospital Care: D/C Manager Security And Safety Documentation
--- NOTE | 2019-12-03 18:57 | RADIOLOGY REPORT (SQ) ---
EXAM DESCRIPTION: CT ABD/PELVIS WITH IV ONLY IMAGES COMPLETED DATE/TIME: 12/03/2019 4:33 pm REASON FOR STUDY: unresponsive s/o delivery COMPARISON: None. TECHNIQUE: CT scan of the abdomen and pelvis performed using helical scanning technique with dynamic intravenous contrast injection. No oral contrast. Images reviewed with lung, soft tissue, and bone windows. Reconstructed coronal and sagittal MPR images reviewed. Delayed images for evaluation of the urinary system also acquired. All images stored on PACS. All CT scanners at this facility use dose modulation, iterative reconstruction, and/or weight based d osing when appropriate to reduce radiation dose to as low as reasonably achievable (ALARA). [facility]: Dose Right [facility]: CareDose [facility]: Dose Right [facility]: Teradose 4D [facility]: [employer] CONTRAST TYPE AND DOSE: contrast/concentration: Isovue 350.00 mmol/ml; Total Contrast Delivered: 85. 9 ml; Total Saline Delivered: 69.0 ml RENAL FUNCTION: Creatinine -0.59 BUN=14 RADIATION DOSE: CT Rad equipment meets quality standard of care and radiation dose reduction techniq ues were employed. CTDIvol: 14.0 - 18.3 mGy. DLP: 1818 mGy-cm.. LIMITATIONS: None. FINDINGS: LOWER CHEST: No significant findings. No nodules or infiltrates. LIVER: Fatty liver. No dilated ducts. The hepatic and portal veins are patent. SPLEEN: Normal size. No focal lesions. PANCREAS: No masses. No significant calcifications. No adjacent inflammation or peripancreatic fluid collections. Pancreatic duct not dilated. GALLBLADDER: No identified stones by CT criteria. No inflammatory changes to suggest cholecystitis. ADRENAL GLANDS: No significant masses or asymmetry. RIGHT KIDNEY AND URETER: No solid masses. No significant calcifications. No hydronephrosis or hyd roureter. LEFT KIDNEY AND URETER: No solid masses. No significant calcifications. No hydronephrosis or hydr oureter. AORTA AND VESSELS: No aneurysm. No dissection. Renal arteries, SMA, celiac without stenosis. RETROPERITONEUM: No retroperitoneal adenopathy, hemorrhage or masses. BOWEL AND PERITONEAL CAVITY: No masses or inflammatory changes. No free fluid or peritoneal masses. APPENDIX: Normal. PELVIS: Status post uterus (the patient delivered baby today) new a defect is identified ned g the anterior lower uterine segment maybe related to history of prior section. No evidence of active extravasation of IV contrast from the uterus. There are dilated enhancing periuterine and parametrial vessels likely on the basis of vascular congestion syndrome. Mild amount of low attenua raúl free fluid in the pelvis maybe related to recent delivery. Heterogenous appearance to the dilated endometrial cavity may be on the basis of hematoma, post deliv deshawn changes. ABDOMINAL WALL: Small fat containing umbilical hernia. No evidence of free fluid within the hernia. No evidence of incarceration or strangulation. BONES: No significant or acute findings. OTHER: Mild volume of low attenuated free fluid in the abdomen, more so in the left upper quadrant. No evidence of active extravasation of IV contrast from the spleen. IMPRESSION: 1. Status post uterus (the patient delivered a baby to date, 12/03/2019). No maria elena dence of active extravasation of contrast in the abdomen or pelvis. 2. Mild low attenuated volume of free fluid in the abdomen, more so in the left side of the abdomen, and in the pelvic region. 3. Fatty liver. 4. Small fat containing umbilical hernia. No evidence of free fluid within the hernia. No evidence of incarceration or strangulation. 5. Additional findings as above. COMMENT: 1. The results of this examination were discussed with the patient's nurse practitioner adult on 2019. TECHNICAL DOCUMENTATION: JOB ID: [id number] Quality ID # [id number]: Final reports with documentation of one or more dose reduction techniques (e.g., Au tomated exposure control, adjustment of the mA and/or kV according to patient size, use of iterative reconstruction technique) 2010 [employer]- All Rights Reserved Reading location - IP/workstation name: [email or web address]
[2019-12-03 21:20] LABS: ABSOLUTE MONOCYTES (AUTO) 0.5 10^3/uL (0.1-1.4); ABSOLUTE NEUT (AUTO) 7.7 10^3/uL (1.7-8.2); BASOPHILS % (AUTO) 0.3 % (0-2); EOSINOPHILS % (AUTO) 0.1 % (0-6); HEMATOCRIT 36.2 % (36.0-47.0); HEMOGLOBIN 12.5 g/dL (12.0-15.5); LYMPHOCYTES % (AUTO) 10.6 % (13-45); MEAN CORPUSCULAR HEMOGLOBIN 27.7 pg (27.0-33.4); MEAN CORPUSCULAR HGB CONC 34.5 g/dL (32.0-36.0); MEAN CORPUSCULAR VOLUME 81 fl (80-97); MONOCYTES % (AUTO) 5.4 % (3-13); PLATELET COUNT 104 10^3/uL (150-450); RED BLOOD COUNT 4.49 10^6/uL (3.72-5.28); RED CELL DISTRIBUTION WIDTH 16.1 % (11.5-14.0); SEGMENTED NEUTROPHILS % (AUTO) 83.6 % (42-78); TOTAL CELLS COUNTED % (AUTO) 100 %; WHITE BLOOD COUNT 9.2 10^3/uL (4.0-10.5)
[2019-12-03 21:35] LABS: ALBUMIN 2.5 g/dL (3.5-5.0); ALKALINE PHOSPHATASE 280 U/L (38-126); ANION GAP 5 (5-19); ASPARTATE AMINO TRANSFERASE 46 U/L (14-36); BILIRUBIN,DIRECT 0.1 mg/dL (0.0-0.4); BILIRUBIN,TOTAL 0.9 mg/dL (0.2-1.3); BLOOD UREA NITROGEN 11 mg/dL (7-20); CALCIUM 8.5 mg/dL (8.4-10.2); CARBON DIOXIDE 22 mmol/L (22-30); CHLORIDE 106 mmol/L (98-107); GLUCOSE 127 mg/dL (75-110); POTASSIUM 4.2 mmol/L (3.6-5.0); TOTAL PROTEIN 5.5 g/dL (6.3-8.2)
--- NOTE | 2019-12-03 21:42 | EKG REPORT ---
SEVERITY:- NORMAL ECG - SINUS RHYTHM : Confirmed by: Atilio Berger MD 03-Dec-2019 21:42:30
[2019-12-03] MEDS: FAMOTIDINE 20 MG TABLET PO SCH (21:48)
[2019-12-04] MEDS: ACETAMINOPHEN WITH CODEINE #3 TABLET PO PRN ×3 (02:40→21:30)
[2019-12-04 07:38] LABS: HEPATITS B SURFACE ANTIGEN Negative (Negative)
[2019-12-04 07:40] LABS: HEPATITIS C VIRUS ANTIBODY <0.1 s/co ratio (0.0-0.9)
[2019-12-04 08:54] LABS: HEMATOCRIT 36.6 % (36.0-47.0); HEMOGLOBIN 12.1 g/dL (12.0-15.5); MEAN CORPUSCULAR HEMOGLOBIN 27.2 pg (27.0-33.4); MEAN CORPUSCULAR VOLUME 82 fl (80-97); PLATELET COUNT 111 10^3/uL (150-450); RED BLOOD COUNT 4.44 10^6/uL (3.72-5.28); RED CELL DISTRIBUTION WIDTH 16.3 % (11.5-14.0); WHITE BLOOD COUNT 8.6 10^3/uL (4.0-10.5)
[2019-12-04] MEDS: DOCUSATE SODIUM 100 MG CAPSULE PO SCH ×2 (09:23→17:46)
[2019-12-04] MEDS: PRENATAL VITAMIN W DHA CAPSULE PO SCH (09:23)
[2019-12-04] MEDS: SENNOSIDES/DOCUSATE 8.6-50 MG 1 EACH TABLET PO SCH (09:23)
[2019-12-04] MEDS: FAMOTIDINE 20 MG TABLET PO SCH ×2 (09:23→21:24)
[2019-12-04] MEDS: FERROUS SULFATE 325 MG TABLET PO SCH ×2 (09:29→17:46)
--- NOTE | 2019-12-04 09:33 | PDOC PROGRESS REPORT ---
Subjective-OB Progress Note for:: 12/04/19 Subjective: Doingbetter, OOB in room and bathroom, c/o of gas, , holding baby, alert and nurse talking to her in Citizen Of [place] Physical Exam (OB) Vital Signs: Temp Pulse Resp BP Pulse Ox 98.0 F 65 16 117/76 100 12/04/19 07:21 12/04/19 07:21 12/04/19 07:21 12/04/19 07:21 12/04/19 07:21 Intake & Output 12/03/19 12/04/19 12/05/19 06:59 06:59 06:59 Output Total 1400 Balance -1400 Weight 74.1 kg - PIH/Pre-Eclampsia DTR's: 2 + Clonus: Negative Headache: Absent Epigastric Pain: No Visual Changes: No - Lochia Lochia Amount: Small 10-25 ml Lochia Color: Rubra/Red - Abdomen Description: Soft Hernia Present: No Fundal Description: Firm, Midline Fundal Height: u/u - u/2 Objective-Diagnostic Laboratory: 12/04/19 08:25 12/03/19 21:09 12/03/19 12/03/19 12/03/19 06:53 09:17 14:14 WBC 7.6 RBC 4.97 Hgb 13.6 Hct 40.4 MCV 81 MCH 27.4 MCHC 33.7 RDW 15.7 H Plt Count 103 L Seg Neutrophils % 70.4 Sodium 134.3 L Potassium 4.6 Chloride 108 H Carbon Dioxide 19 L Anion Gap 7 BUN 13 Creatinine 0.54 Est GFR ( Amer) > 60 Glucose 84 Uric Acid 5.6 Calcium 8.6 Magnesium Total Bilirubin 1.0 AST 49 H Alkaline Phosphatase 341 H Total Protein 6.6 Albumin 3.0 L Amylase Lipase Urine Color NISA Urine Appearance SLIGHTLY-CLOUDY Urine pH 6.0 Ur Specific [place] 1.017 Urine Protein 30 H Urine Glucose (UA) NEGATIVE Urine Ketones NEGATIVE Urine Blood SMALL H Urine Nitrite NEGATIVE Ur Leukocyte Esterase NEGATIVE 12/03/19 12/03/19 12/03/19 14:14 21:09 21:09 WBC 9.2 RBC 4.49 Hgb 12.5 Hct 36.2 MCV 81 MCH 27.7 MCHC 34.5 RDW 16.1 H Plt Count 104 L Seg Neutrophils % 83.6 H Sodium 134.9 L 133.2 L Potassium 4.2 4.2 Chloride 108 H 106 Carbon Dioxide 21 L 22 Anion Gap 6 5 BUN 14 11 Creatinine 0.59 0.62 Est GFR ( Amer) > 60 > 60 Glucose 101 127 H Uric Acid 6.2 Calcium 8.5 8.5 Magnesium 1.9 Total Bilirubin 1.0 0.9 AST 50 H 46 H Alkaline Phosphatase 347 H 280 H Total Protein 6.3 5.5 L Albumin 2.9 L 2.5 L Amylase 92 Lipase 121.7 Urine Color Urine Appearance Urine pH Ur Specific [place] Urine Protein Urine Glucose (UA) Urine Ketones Urine Blood Urine Nitrite Ur Leukocyte Esterase 12/04/19 08:25 WBC 8.6 RBC 4.44 Hgb 12.1 Hct 36.6 MCV 82 MCH 27.2 MCHC 33.0 RDW 16.3 H Plt Count 111 L Seg Neutrophils % Sodium Potassium Chloride Carbon Dioxide Anion Gap BUN Creatinine Est GFR ( Amer) Glucose Uric Acid Calcium Magnesium Total Bilirubin AST Alkaline Phosphatase Total Protein Albumin Amylase Lipase Urine Color Urine Appearance Urine pH Ur Specific [place] Urine Protein Urine Glucose (UA) Urine Ketones Urine Blood Urine Nitrite Ur Leukocyte Esterase 12/03/19 12/03/19 12/03/19 14:14 17:48 21:09 Troponin I < 0.012 < 0.012 < 0.012 Assessment and Plan(PN) - Assessment and Plan (1) Abdominal pain Qualifiers: Abdominal location: right upper quadrant Qualified Code(s): R10.11 - Right upper quadrant pain Is this a current diagnosis for this admission?: Yes (2) Chest pain at rest Is this a current diagnosis for this admission?: Yes (3) Fatty infiltration of liver Is this a current diagnosis for this admission?: Yes (4) Gestational thrombocytopenia Is this a current diagnosis for this admission?: Yes (5) History of section, low transverse Is this a current diagnosis for this admission?: Yes (6) Non-Pashto speaking patient Is this a current diagnosis for this admission?: Yes (7) Pre-syncope Is this a current diagnosis for this admission?: Yes (8) Right upper quadrant abdominal pain affecting Is this a current diagnosis for this admission?: Yes (9) Status post vaginal delivery Is this a current diagnosis for this admission?: Yes (10) Transaminitis Is this a current diagnosis for this admission?: Yes (11) Umbilical hernia without obstruction or gangrene Is this a current diagnosis for this admission?: Yes (12) Limited care Qualifiers: Trimester: unspecified trimester Qualified Code(s): O09.30 - Supervision of with insufficient care, unspecified trimester Is this a current diagnosis for this admission?: Yes - Time Spent with Patient Time with patient: Less than 15 minutes Medications reviewed and adjusted accordingly: Yes - Disposition Anticipated Discharge: Home Within: within 24 hours - home in am
--- NOTE | 2019-12-04 11:09 | PDOC PROGRESS REPORT ---
Subjective Progress Note for:: 12/04/19 Subjective:: Patient is doing well today. Still complains of generalized abdominal pain but seems to be mostly in the lower quadrant. Her chest pain has completely resolved since yesterday. Has not had any recurrence. Denies any shortness of breath. Reason For Visit: Physical Exam Vital Signs: Temp Pulse Resp BP Pulse Ox 98.0 F 65 16 117/76 100 12/04/19 07:21 12/04/19 07:21 12/04/19 07:21 12/04/19 07:21 12/04/19 07:21 Intake & Output 12/03/19 12/04/19 12/05/19 06:59 06:59 06:59 Output Total 1400 Balance -1400 Weight 74.1 kg General appearance: PRESENT: no acute distress, cooperative Respiratory exam: PRESENT: symmetrical, unlabored. ABSENT: accessory muscle use, retraction, tachypnea Cardiovascular exam: PRESENT: RRR, +S1, +S2. ABSENT: tachycardia GI/Abdominal exam: PRESENT: guarding - Voluntary guarding, soft, tenderness - Generalized location on light palpation. Seems to jump when you press in her lower quadrants particularly though.. ABSENT: firm, rebound, rigid Neurological exam: PRESENT: alert, awake, oriented to person, oriented to place, oriented to time, oriented to situation Results Laboratory Results: 12/04/19 08:25 12/03/19 21:09 12/03/19 12/03/19 12/03/19 14:14 14:14 21:09 WBC 7.6 9.2 RBC 4.97 4.49 Hgb 13.6 12.5 Hct 40.4 36.2 MCV 81 81 MCH 27.4 27.7 MCHC 33.7 34.5 RDW 15.7 H 16.1 H Plt Count 103 L 104 L Seg Neutrophils % 70.4 83.6 H Sodium 134.9 L Potassium 4.2 Chloride 108 H Carbon Dioxide 21 L Anion Gap 6 BUN 14 Creatinine 0.59 Est GFR ( Amer) > 60 Glucose 101 Uric Acid 6.2 Calcium 8.5 Magnesium 1.9 Total Bilirubin 1.0 AST 50 H Alkaline Phosphatase 347 H Total Protein 6.3 Albumin 2.9 L Amylase 92 Lipase 121.7 12/03/19 12/04/19 21:09 08:25 WBC 8.6 RBC 4.44 Hgb 12.1 Hct 36.6 MCV 82 MCH 27.2 MCHC 33.0 RDW 16.3 H Plt Count 111 L Seg Neutrophils % Sodium 133.2 L Potassium 4.2 Chloride 106 Carbon Dioxide 22 Anion Gap 5 BUN 11 Creatinine 0.62 Est GFR ( Amer) > 60 Glucose 127 H Uric Acid Calcium 8.5 Magnesium Total Bilirubin 0.9 AST 46 H Alkaline Phosphatase 280 H Total Protein 5.5 L Albumin 2.5 L Amylase Lipase 12/03/19 12/03/19 12/03/19 14:14 17:48 21:09 Troponin I < 0.012 < 0.012 < 0.012 Impressions: Chest X-Ray 12/03/19 14:06 IMPRESSION: Asymmetric nodular opacity overlying the right base probably something on or behind the patient. Clinical correlation is needed. If if needed two-view chest is recommended. Head CT 12/03/19 14:07 IMPRESSION: No acute intracranial event. Pneumorrhacis in the upper cervical region as described. EVIDENCE OF ACUTE STROKE: NO. Abdomen/Pelvis CT 12/03/19 14:35 IMPRESSION: 1. Status post uterus (the patient delivered a baby to date, 12/03/2019). No evidence of active extravasation of contrast in the abdomen or pelvis. 2. Mild low attenuated volume of free fluid in the abdomen, more so in the left side of the abdomen, and in the pelvic region. 3. Fatty liver. 4. Small fat containing umbilical hernia. No evidence of free fluid within the hernia. No evidence of incarceration or strangulation. 5. Additional findings as above. Assessment and Plan - Diagnosis (1) Pre-syncope Is this a current diagnosis for this admission?: Yes Plan: Head CT was unremarkable. EKG yesterday was also unremarkable. Currently resolved and she has been back to mental status. Off IV fluids. Vital signs remained stable. Her episode yesterday may have been a vasovagal reaction related to pain. (2) Chest pain at rest Is this a current diagnosis for this admission?: Yes Plan: EKG shows sinus rhythm with no worrisome changes concerning for ischemia. EKG is also unchanged from her prior EKG last year. Old findings of right bundle branch incomplete block noted. Troponin is negative x3. Pain control with no sedating medications. Also receiving Pepcid for possible acid reflux. Chest pain is currently resolved (3) Abdominal pain Qualifiers: Abdominal location: right upper quadrant Qualified Code(s): R10.11 - Right upper quadrant pain Is this a current diagnosis for this admission?: Yes Plan: Abdominal/pelvis CT with IV contrast shows hepatic steatosis and some free fluid in the pelvis. I believe abdominal pain is likely related to her very recent vaginal delivery. May be a mild contribution from a hepatic steatosis for which there is no much to do but pain control with regular [id number] medications. Will defer to SHOEMAKER APPRENTICE for rest of management. (4) Status post vaginal delivery Is this a current diagnosis for this admission?: Yes Plan: care as per SHOEMAKER APPRENTICE. (5) Transaminitis Is this a current diagnosis for this admission?: Yes Plan: Transaminitis remains stable. She has hepatic steatosis. Recommend fish oil 1 tablet daily. Patient should follow-up with her PCP for lipid panel and further management. - Plan Summary Summary: Discussed plan with SHOEMAKER APPRENTICE provider. I will sign off. - Time Time Spent with patient: 15-24 minutes
[2019-12-05 08:30] VITALS: BP 105/63
[2019-12-05] MEDS: DOCUSATE SODIUM 100 MG CAPSULE PO SCH (09:19)
[2019-12-05] MEDS: FAMOTIDINE 20 MG TABLET PO SCH (09:19)
[2019-12-05] MEDS: SENNOSIDES/DOCUSATE 8.6-50 MG 1 EACH TABLET PO SCH (09:19)
[2019-12-05] MEDS: FERROUS SULFATE 325 MG TABLET PO SCH (09:19)
[2019-12-05] MEDS: PRENATAL VITAMIN W DHA CAPSULE PO SCH (09:19)
--- NOTE | 2019-12-05 13:40 | PDOC DISCHARGE SUMMARY ---
Impression - Admit/DC Date/PCP Admission Date/Primary Care Provider: 12/03/19 07:49 Discharge Date: 12/05/19 - Assessment Summary: Discussed plan with JAVA [employer] ARCHITECT provider. I will sign off. - Additional Information Resuscitation Status: Full Code Discharge Diet: Regular Discharge Activity: Balance Activity w/Rest Home Medications: Vits96/Iron Fum/Folic [ Tablet] 1 tab PO DAILY 02/15/18 HPI Reason(s) for Admission: Onset of Labor Procedures: NST Intrapartum Procedure(s): Spontaneous Vaginal Delivery Complication(s): Laceration-Perineal Laceration-Degree: 1st Hospital Course Hospital Course: Pt c/o RUQ pain after delivery and then would not respond, was evaluated by hospitalist, found to have fatty liver, all other testing negative Results Laboratory Results: WBC 8.6 10^3/uL (4.0-10.5) 12/04/19 08:25 RBC 4.44 10^6/uL (3.72-5.28) 12/04/19 08:25 Hgb 12.1 g/dL (12.0-15.5) 12/04/19 08:25 Hct 36.6 % (36.0-47.0) 12/04/19 08:25 MCV 82 fl (80-97) 12/04/19 08:25 MCH 27.2 pg (27.0-33.4) 12/04/19 08:25 MCHC 33.0 g/dL (32.0-36.0) 12/04/19 08:25 RDW 16.3 % (11.5-14.0) H 12/04/19 08:25 Plt Count 111 10^3/uL (150-450) L 12/04/19 08:25 Lymph % (Auto) 10.6 % (13-45) L 12/03/19 21:09 [place] % (Auto) 5.4 % (3-13) 12/03/19 21:09 Eos % (Auto) 0.1 % (0-6) 12/03/19 21:09 Baso % (Auto) 0.3 % (0-2) 12/03/19 21:09 Absolute Neuts (auto) 7.7 10^3/uL (1.7-8.2) 12/03/19 21:09 Absolute Lymphs (auto) 1.0 10^3/uL (0.5-4.7) 12/03/19 21:09 Absolute Monos (auto) 0.5 10^3/uL (0.1-1.4) 12/03/19 21:09 Absolute Eos (auto) 0.0 10^3/uL (0.0-0.6) 12/03/19 21:09 Absolute Basos (auto) 0.0 10^3/uL (0.0-0.2) 12/03/19 21:09 Seg Neutrophils % 83.6 % (42-78) H 12/03/19 21:09 PT 12.8 SEC (11.4-15.4) 12/03/19 14:14 INR 0.96 12/03/19 14:14 APTT 28.0 SEC (23.5-35.8) 12/03/19 14:14 Fibrinogen 635 mg/dL (209-497) H 12/03/19 14:14 D-Dimer 3.22 ug/mL (0.00-0.50) H 12/03/19 14:14 Sodium 133.2 mmol/L (137-145) L 12/03/19 21:09 Potassium 4.2 mmol/L (3.6-5.0) 12/03/19 21:09 Chloride 106 mmol/L (98-107) 12/03/19 21:09 Carbon Dioxide 22 mmol/L (22-30) 12/03/19 21:09 Anion Gap 5 (5-19) 12/03/19 21:09 BUN 11 mg/dL (7-20) 12/03/19 21:09 Creatinine 0.62 mg/dL (0.52-1.25) 12/03/19 21:09 Est GFR ( Amer) > 60 (>60) 12/03/19 21:09 Est GFR (MDRD) Non-Af > 60 (>60) 12/03/19 21:09 Glucose 127 mg/dL (75-110) H 12/03/19 21:09 Uric Acid 6.2 mg/dL (2.5-6.2) 12/03/19 14:14 Calcium 8.5 mg/dL (8.4-10.2) 12/03/19 21:09 Magnesium 1.9 mg/dL (1.6-2.3) 12/03/19 14:14 Total Bilirubin 0.9 mg/dL (0.2-1.3) 12/03/19 21:09 Direct Bilirubin 0.1 mg/dL (0.0-0.4) 12/03/19 21:09 Neonat Total Bilirubin Not Reportable 12/03/19 21:09 Neonat Direct Bilirubin Not Reportable 12/03/19 21:09 Neonat Indirect Bili Not Reportable 12/03/19 21:09 AST 46 U/L (14-36) H 12/03/19 21:09 ALT 78 U/L (<35) H 12/03/19 21:09 Alkaline Phosphatase 280 U/L (38-126) H 12/03/19 21:09 Lactate Dehydrogenase 254 U/L (120-246) H 12/03/19 14:14 Troponin I < 0.012 ng/mL 12/03/19 21:09 Total Protein 5.5 g/dL (6.3-8.2) L 12/03/19 21:09 Albumin 2.5 g/dL (3.5-5.0) L 12/03/19 21:09 Amylase 92 U/L (30-110) 12/03/19 14:14 Lipase 121.7 U/L (23-300) 12/03/19 14:14 Urine Color NISA 12/03/19 06:53 Urine Appearance SLIGHTLY-CLOUDY 12/03/19 06:53 Urine pH 6.0 (5.0-9.0) 12/03/19 06:53 Ur Specific [place] 1.017 12/03/19 06:53 Urine Protein 30 mg/dL (NEGATIVE) H 12/03/19 06:53 Urine Glucose (UA) NEGATIVE mg/dL (NEGATIVE) 12/03/19 06:53 Urine Ketones NEGATIVE mg/dL (NEGATIVE) 12/03/19 06:53 Urine Blood SMALL (NEGATIVE) H 12/03/19 06:53 Urine Nitrite NEGATIVE (NEGATIVE) 12/03/19 06:53 Urine Bilirubin NEGATIVE (NEGATIVE) 12/03/19 06:53 Urine Urobilinogen 2.0 mg/dL (<2.0) H 12/03/19 06:53 Ur Leukocyte Esterase NEGATIVE (NEGATIVE) 12/03/19 06:53 Urine Ascorbic Acid NEGATIVE (NEGATIVE) 12/03/19 06:53 Urine Opiates Screen NEGATIVE 12/03/19 06:53 Urine Methadone Screen NEGATIVE 12/03/19 06:53 Ur Barbiturates Screen NEGATIVE 12/03/19 06:53 Ur Phencyclidine Scrn NEGATIVE 12/03/19 06:53 Ur Amphetamines Screen NEGATIVE 12/03/19 06:53 U Benzodiazepines Scrn NEGATIVE 12/03/19 06:53 Urine Cocaine Screen NEGATIVE 12/03/19 06:53 U Marijuana (THC) Screen NEGATIVE 12/03/19 06:53 Serum Alcohol < 10 mg/dL (NONE DETECTED) 12/03/19 14:14 RPR NONREACTIVE (NONREACTIVE) 12/03/19 08:22 Hepatitis A IgM Ab Negative (Negative) 12/03/19 14:14 Hep Bs Antigen Negative (Negative) 12/03/19 14:14 Hep B Core IgM Ab Negative (Negative) 12/03/19 14:14 Hepatitis C Antibody <0.1 s/co ratio (0.0-0.9) 12/03/19 14:14 Blood Type O POSITIVE 12/03/19 08:22 Antibody Screen NEGATIVE 12/03/19 08:22 12/03/19 12/03/19 12/03/19 14:14 17:48 21:09 Troponin I < 0.012 < 0.012 < 0.012 Impressions: Chest X-Ray 12/03/19 14:06 IMPRESSION: Asymmetric nodular opacity overlying the right base probably something on or behind the patient. Clinical correlation is needed. If if needed two-view chest is recommended. Head CT 12/03/19 14:07 IMPRESSION: No acute intracranial event. Pneumorrhacis in the upper cervical region as described. EVIDENCE OF ACUTE STROKE: NO. Abdomen/Pelvis CT 12/03/19 14:35 IMPRESSION: 1. Status post uterus (the patient delivered a baby to date, 12/03/2019). No evidence of active extravasation of contrast in the abdomen or pelvis. 2. Mild low attenuated volume of free fluid in the abdomen, more so in the left side of the abdomen, and in the pelvic region. 3. Fatty liver. 4. Small fat containing umbilical hernia. No evidence of free fluid within the hernia. No evidence of incarceration or strangulation. 5. Additional findings as above. Plan Plan of Treatment: f/u at [facility] for PPCK, f/u with PCM for eval of liver findings Time Spent: Less than 30 Minutes
== END 2019-12-05 14:35 | disposition home or self-care (01) | DRG 806 ==
LOC: LC 06:36 → LR 07:49 → 2S 18:50
PROVIDERS: ADMIT Student in an Organized Health Care Education/Training Program; ATTEND Student in an Organized Health Care Education/Training Program
PROC: 10E0XZZ Delivery of Products of Conception, External Approach (ICD-10-PCS; principal; 2019-12-03)
DX: O34.211 Maternal care for low transverse scar from previous cesarean delivery (principal); O26.62 Liver and biliary tract disorders in childbirth; Z37.0 Single live birth; O99.12 Other diseases of the blood and blood-forming organs and certain disorders involving the immune mechanism complicating childbirth; O43.193 Other malformation of placenta, third trimester; N85.8 Other specified noninflammatory disorders of uterus; O24.420 Gestational diabetes mellitus in childbirth, diet controlled; O77.0 Labor and delivery complicated by meconium in amniotic fluid; O75.89 Other specified complications of labor and delivery; R74.0 Nonspecific elevation of levels of transaminase and lactic acid dehydrogenase [LDH]; K42.9 Umbilical hernia without obstruction or gangrene; K76.0 Fatty (change of) liver, not elsewhere classified; D69.6 Thrombocytopenia, unspecified; O70.0 First degree perineal laceration during delivery; Z3A.38 38 weeks gestation of pregnancy; R07.9 Chest pain, unspecified; Z72.89 Other problems related to lifestyle; O99.314 Alcohol use complicating childbirth
CPT/HCPCS: 1967; 36415; 70450; 71045; 74177; 80053; 80074; 80307; 81005; 82150; 83615; 83690; 83735; 84484; 84550; 85025; 85027; 85379; 85384; 85610; 85730; 86592; 86850; 86900; 86901; 87070; 88307; 93005; 93010; C1758; J0131; J2405; J2540; J2590; J3010; J3490; S0028